=== PATIENT | female | born 1950 | race Caucasian/White ===

== ENCOUNTER → 2020-06-03 13:12 | Outpatient (CLI) | payer MEDICARE, OTHER, SELFPAY ==
--- NOTE | ~2020-06-03 | DEXA_ITS ---
Bone Density Report Name: Sugey Self Age: 70 Sex: Female Ethnicity: White Date of : 1950 Indication: postmenopausal; screening for osteoporosis; height loss; history of glucocorticoids; hysterectomy; Referring Provider: Wang, Raiza Vargas Study: Bone densitometry was performed. Exam Date: June 03, 2020 Accession number: [id number] Bone Density: Region BMD T-score Z-score Classification AP Spine (L1, L2, L3) 1.248 2.1 4.0 Normal Femoral Neck (Left) 0.838 -0.1 1.6 Normal Total Hip (Left) 0.971 0.2 1.6 Normal Femoral Neck (Right) 0.848 0.0 1.7 Normal Total Hip (Right) 0.934 -0.1 1.3 Normal Total Hip Mean 0.953 0.1 1.5 Normal World Health Organization criteria for BMD impression classify patients as: Normal (T-score at or above -1.0), Osteopenia (T-score between -1.0 and -2.5), or Osteoporosis (T-score at or below -2.5). 10-year Fracture Risk: FRAX not reported because: All T-scores for Spine Total, Hip Total, Femoral Neck at or above -1.0 Previous Exams: Region Exam Age BMD T-score BMD Change BMD Change Date g/cm2 vs Baseline vs Previous AP Spine(L1, L2, L3) 06/03/2020 70 1.248 2.1 0.067 -0.048* 12/13/2017 67 1.296 2.5 0.115 0.008 02/11/2013 62 1.288 2.5 0.107 0.091* 01/20/2010 59 1.197 1.6 0.016 0.044* 01/13/2007 56 1.152 1.2 -0.029 -0.029 11/15/2003 53 1.181 1.5 Total Hip(Left) 06/03/2020 70 0.971 0.2 -0.114 -0.030* 12/13/2017 67 1.002 0.5 -0.084 -0.028* 02/11/2013 62 1.030 0.7 -0.056 -0.023 01/20/2010 59 1.053 0.9 -0.033 -0.033 11/15/2003 53 1.086 1.2 Total Hip(Right) 06/03/2020 70 0.934 -0.1 -0.088 0.006 12/13/2017 67 0.929 -0.1 -0.094 -0.048* 02/11/2013 62 0.977 0.3 -0.046 0.019 01/20/2010 59 0.958 0.1 -0.065 -0.065 11/15/2003 53 1.023 0.7 *Denotes significance at 95% confidence level, LSC for AP Spine = 0.022 g/cm2, LSC for Total Hip = 0.027 g/cm2 Clinical Information Provided by Patient: Has taken Glucocorticoids Has the following medical conditions: Hysterectomy Patient maximum height was 67 Menopause Age: 52 Drinks caffeinated beverages Onset of menses at age 13 Number of children 2
--- NOTE | ~2020-06-03 | MM_ITS ---
EXAMINATION: MM screening aleyda BI w mickey HISTORY: Screening mammogram TECHNIQUE: Craniocaudal and mediolateral oblique 3-D tomosynthesis images were obtained and synthetic 2-D images were generated. CAD analysis was submitted and interpreted. COMPARISON: 03/17/2019, 03/01/2017, 02/28/2016 bilateral digital screening mammogram examinations BREAST PARENCHYMAL COMPOSITION: There are scattered areas of fibroglandular density. FINDINGS: Numerous bilateral benign calcifications. There is no evidence of suspicious mass, calcific ation, or architectural distortion to suggest malignancy in either breast. There has been no suspicio us interval change. IMPRESSION: 1. No mammographic evidence of malignancy. 2. Recommend routine screening mammography in one year. BI-RADS Category 2: Benign finding(s). Reviewed, dictated and finalized at location A.
== END ==
PROVIDERS: PCP Family Medicine; Visit Provider Nurse Practitioner Obstetrics & Gynecology
DX: Z12.31 Encounter for screening mammogram for malignant neoplasm of breast (principal); Z78.0 Asymptomatic menopausal state
CPT/HCPCS: 77063; 77067; 77080

== ENCOUNTER → 2021-06-22 13:44 | Outpatient (CLI) | payer MEDICARE, OTHER, SELFPAY ==
--- NOTE | ~2021-06-22 | MM_ITS ---
EXAMINATION: MM screening aleyda BI w mickey HISTORY: Screening mammogram TECHNIQUE: Craniocaudal and mediolateral oblique 3-D tomosynthesis images were obtained and synthetic 2-D images were generated. CAD analysis was submitted and interpreted. COMPARISON: 06/03/2020 bilateral digital screening mammogram 03/17/2019 diagnostic left mammogram 03/12/2019, 03/01/2017 bilateral digital screening mammogram examinations BREAST PARENCHYMAL COMPOSITION: There are scattered areas of fibroglandular density. FINDINGS: Numerous benign calcifications are scattered throughout both breasts. There is no evidence of suspicious mass, calcification, or architectural distortion to suggest malignancy in either breast . There has been no suspicious interval change. IMPRESSION: 1. No mammographic evidence of malignancy. 2. Recommend routine screening mammography in one year. BI-RADS Category 2: Benign finding(s). Reviewed, dictated and finalized at location A.
== END ==
PROVIDERS: PCP Emergency Medicine; Visit Provider Emergency Medicine
DX: Z12.31 Encounter for screening mammogram for malignant neoplasm of breast (principal)
CPT/HCPCS: 77063; 77067

== ENCOUNTER → 2022-03-22 09:59 | Outpatient (CLI) | payer MEDICARE, OTHER, SELFPAY ==
--- NOTE | ~2022-03-22 | XR_ITS ---
EXAMINATION: XR hip BI 2V w AP pelvis DATE: 03/22/2022 10:23 INDICATION: Bilateral hip pain TECHNIQUE: AP view of the pelvis and two views of each views of each hip were obtained. COMPARISON: None. FINDINGS: Bone alignment is normal. There is no fracture. There is mild osteoarthritis of the hips. C alcified atherosclerosis is noted. There are phleboliths in the pelvis. IMPRESSION: 1. Mild osteoarthritis of the hips. Reviewed, dictated and finalized at location A.
== END ==
PROVIDERS: PCP Emergency Medicine; Visit Provider Emergency Medicine
DX: M25.551 Pain in right hip (principal); M25.552 Pain in left hip; M16.0 Bilateral primary osteoarthritis of hip
CPT/HCPCS: 73521

== ENCOUNTER 2022-06-14 02:56 | Outpatient (CLI) | payer MEDICARE, OTHER, SELFPAY ==
[2022-06-07 14:14] VITALS: BMI 26.5
--- NOTE | 2022-06-11 11:40 | PC.NURSE ---
Pre Radiology instructions Report to the Outpatient Waiting Room, entrance under the green pavilion located off [facility], at time _1100 on date _06/14 . Procedure Time: _1300 . One visitor will be allowed to accompany the patient into the hospital. The visitor will be instructed to remain with patient at all times or leave the building due to restrictions. We will allow the visitor to come back to the postoperative area when patient is ready. NO children visitors allowed at this time. You and your visitor will be asked to self-screen and do not enter if you have any COVID symptoms. A mask is required within the hospital. Patients are to have no food or drink 6 hours prior to procedure time Driving will be restricted after the procedure, you must have a person to drive you home. Labs will be drawn in preop area and once reviewed, you will be taken to radiology area for procedure. When the procedure is completed, you will be taken to outpatient where you will be monitored for several hours. You may have one visitor in this area. Other than holding anti-coagulants, patient may take other medication(s) as scheduled. Prior to your appointment date patients are instructed to hold anti-coagulants after discussing with ordering provider to stop. If unable to discontinue anti-coagulants please notify radiologist. No aspirin or warfarin (Coumadin) for 7 days prior to the procedure. No clopidogrel (Plavix), ticagrelor (Brilinta), prasugrel (Effient) or dabigatran (Pradaxa) for 5 days prior to the procedure. No rivaroxaban (Xarelto), apixaban (Eliquis), dipyridamole (Aggrenox or Persantine) or cilostazol (Pletal) for 2 days prior to the procedure. Medications to discontinue per physician: Date to take last dose: Please leave all valuables, including medications, at home the day of procedure. The hospital will not accept responsibility for valuables. Wear comfortable, loose fitting clothing. Follow any additional instructions given to you from ordering provider. Telephone instructions given to ___pt and asked if any additional questions and then verbalized understanding. Patient advised to call scheduling provider office or registration scheduling [phone] if any additional questions.
[2022-06-14] VITALS (7 sets, daily range): BP systolic 165–185; BP diastolic 75–92; PULSE 56–65; RESP 12–20; TEMP 36.6; O2SAT 97–100
--- NOTE | ~2022-06-14 | US_ITS ---
EXAMINATION: US biopsy renal DATE: 06/14/2022 14:41 INDICATION: Chronic kidney disease, stage III. TECHNIQUE: The procedure including the risks, benefits, and alternatives was discussed with the patie nt. Risks discussed included bleeding and infection. The patient understood the risks and agreed to p roceed. A timeout was performed to verify the patient's name, date of , and procedure to be p erformed. The skin overlying the left kidney was prepped and draped in usual sterile fashion. Anest hetic was administered with 1% lidocaine subcutaneously. An 18 gauge core biopsy needle was then use d to obtain 3 core biopsy specimens under continuous sonographic guidance. The entry site was cleaned and dressed. There were no immediate complications. FINDINGS: Ultrasound images demonstrate the needle in the kidney. IMPRESSION: 1. Ultrasound-guided random left kidney core needle biopsy. Reviewed, dictated and finalized at location A.
[2022-06-14] MEDS: SODIUM CHLORIDE 0.9% IV 1,000 ML 30 ML IV CONT (11:35)
[2022-06-14 11:47] LABS: Mean Platelet Volume 7.9 fl (7.4-10.4); Platelet Count Result 584 k/mm3 (150-375)
[2022-06-14 12:09] LABS: INR 0.9; Prothrombin Time 11.6 Seconds (11.1-14.7)
[2022-06-14 15:24] LABS: Glucose Point of Care 104 mg/dl (65-105)
--- NOTE | 2022-06-14 17:03 | SUR.PHASEII ---
[address] marrero about patient possible leaving an hour earlier then the required 4 hour time frame, he is okay with patient leaving around 1700 as long as she is stable and doing okay.
== END 2022-06-14 02:57 | disposition home or self-care (01) ==
PROVIDERS: PCP Emergency Medicine; Referring Provider Internal Medicine Nephrology; Visit Provider Radiology Diagnostic Radiology
PROC: (CPT 76942; principal; 2022-06-14 13:00)
DX: I12.9 Hypertensive chronic kidney disease with stage 1 through stage 4 chronic kidney disease, or unspecified chronic kidney disease (principal); N18.32 Chronic kidney disease, stage 3b; Z51.81 Encounter for therapeutic drug level monitoring; Z79.899 Other long term (current) drug therapy
CPT/HCPCS: 36415; 50200; 76942; 82948; 85049; 85610; 88300; 88305; 88313; 88329; 88346; 88348; 88350; J7030

== ENCOUNTER → 2022-08-02 09:49 | Outpatient (CLI) | payer MEDICARE, OTHER, SELFPAY ==
--- NOTE | ~2022-08-02 | MR_ITS ---
EXAMINATION: MR lumbar spine wo con DATE: 08/02/2022 10:24 INDICATION: Low back pain radiating to the hips. Lumbar radiculopathy. TECHNIQUE: Magnetic resonance imaging (MRI) of the lumbar spine was performed without intravenous con trast. Sequences included sagittal T2-weighted FSE, sagittal T2-weighted FS FSE, sagittal T1-weighted FSE, and axial T2-weighted FSE. COMPARISON: None FINDINGS: There is 15 degrees dextroscoliosis of thoracolumbar spine. Vertebral body heights are norm al. There is moderately decreased disc height at T12-L1, mildly decreased disc height at L2-L3 and L3 -L4, severely decreased disc height at L3-L4 and L4-L5, and mildly decreased disc height at L5-S1. Th e distal spinal cord signal intensity is normal. The conus medullaris is at T12-L1. The following dis c levels are specifically discussed: T12-L1: The disc is bulging. There is moderate right and severe left facet joint osteoarthritis. Ther e is mild left neural foraminal stenosis. There is mild central canal stenosis. L1-L2: The disc is bulging. There is moderate bilateral facet joint osteoarthritis. There is mild lef t neural foraminal stenosis. There is mild central canal stenosis. L2-L3: The disc is bulging. There is mild right and moderate left facet joint osteoarthritis. There i s mild bilateral neural foraminal stenosis. There is mild central canal stenosis. L3-L4: The disc is bulging with superimposed right central extrusion. There is severe bilateral facet joint osteoarthritis. There is moderate bilateral neural foraminal stenosis. There is moderate centr al canal stenosis. L4-L5: The disc is bulging and has an annular fissure. There is severe bilateral facet joint osteoart hritis. There is moderate bilateral neural foraminal stenosis. There is mild central canal stenosis. L5-S1: The disc is bulging and has an annular fissure. There is severe bilateral facet joint osteoart hritis. There is mild bilateral neural foraminal stenosis. There is mild central canal stenosis. IMPRESSION: 1. Severe lumbar spondylosis. 2. Thoracolumbar dextroscoliosis. Reviewed, dictated and finalized at location A.
== END ==
PROVIDERS: PCP Emergency Medicine; Visit Provider Nurse Practitioner Family
DX: M54.16 Radiculopathy, lumbar region (principal); M43.06 Spondylolysis, lumbar region; M41.85 Other forms of scoliosis, thoracolumbar region
CPT/HCPCS: 72148

== ENCOUNTER → 2022-12-11 12:07 | Outpatient (CLI) | payer MEDICARE, OTHER, SELFPAY ==
--- NOTE | ~2022-12-11 | DEXA_ITS ---
Bone Density Report Name: BIANKA LICONA Age: 72 Sex: Female Ethnicity: White Date of : 1950 Indication: postmenopausal; screening for osteoporosis; height loss; asthma or emphysema; hysterectomy; Referring Provider: MARVEL THAO Study: Bone densitometry was performed. Exam Date: December 11, 2022 Accession number: [id number] Bone Density: Region BMD T-score Z-score Classification AP Spine (L1, L2, L3) 1.329 2.8 4.9 Normal Femoral Neck (Left) 0.756 -0.8 1.0 Normal Total Hip (Left) 0.915 -0.2 1.3 Normal Femoral Neck (Right) 0.775 -0.7 1.2 Normal Total Hip (Right) 0.873 -0.6 1.0 Normal Total Hip Mean 0.894 -0.4 1.2 Normal World Health Organization criteria for BMD impression classify patients as: Normal (T-score at or above -1.0), Osteopenia (T-score between -1.0 and -2.5), or Osteoporosis (T-score at or below -2.5). 10-year Fracture Risk: FRAX not reported because: All T-scores for Spine Total, Hip Total, Femoral Neck at or above -1.0 Previous Exams: Region Exam Age BMD T-score BMD Change BMD Change Date g/cm2 vs Baseline vs Previous AP Spine(L1, L2, L3) 12/11/2022 72 1.329 2.8 0.148 0.082* 06/03/2020 70 1.248 2.1 0.067 -0.048* 12/13/2017 67 1.296 2.5 0.115 0.008 02/11/2013 62 1.288 2.5 0.107 0.091* 01/20/2010 59 1.197 1.6 0.016 0.044* 01/13/2007 56 1.152 1.2 -0.029 -0.029 11/15/2003 53 1.181 1.5 Total Hip(Left) 12/11/2022 72 0.915 -0.2 -0.170 -0.056* 06/03/2020 70 0.971 0.2 -0.114 -0.030* 12/13/2017 67 1.002 0.5 -0.084 -0.028* 02/11/2013 62 1.030 0.7 -0.056 -0.023 01/20/2010 59 1.053 0.9 -0.033 -0.033 11/15/2003 53 1.086 1.2 Total Hip(Right) 12/11/2022 72 0.873 -0.6 -0.150 -0.062* 06/03/2020 70 0.934 -0.1 -0.088 0.006 12/13/2017 67 0.929 -0.1 -0.094 -0.048* 02/11/2013 62 0.977 0.3 -0.046 0.019 01/20/2010 59 0.958 0.1 -0.065 -0.065 11/15/2003 53 1.023 0.7 *Denotes significance at 95% confidence level, LSC for AP Spine = 0.022 g/cm2, LSC for Total Hip = 0.027 g/cm2 Clinical Information Provided by Patient: Has the following medical conditions: Asthma or Emphysema, Hysterectomy Patient maximum height
--- NOTE | ~2022-12-11 | MM_ITS ---
EXAMINATION: MM screening aleyda BI w mickey HISTORY: Screening mammogram TECHNIQUE: Craniocaudal and mediolateral oblique 3-D tomosynthesis images were obtained and synthetic 2-D images were generated. CAD analysis was submitted and interpreted. COMPARISON: 06/22/2021, 06/03/2020, 03/2019 bilateral screening mammogram examinations BREAST PARENCHYMAL COMPOSITION: There are scattered areas of fibroglandular density. FINDINGS: Numerous bilateral benign calcifications are scattered throughout the breast. There is no e vidence of suspicious mass, calcification, or architectural distortion to suggest malignancy in eithe r breast. There has been no suspicious interval change. IMPRESSION: 1. No mammographic evidence of malignancy. 2. Recommend routine screening mammography in one year. BI-RADS Category 2: Benign finding(s). Reviewed, dictated and finalized at location A. D [employer]
== END ==
PROVIDERS: PCP Emergency Medicine; Visit Provider Emergency Medicine
DX: Z12.31 Encounter for screening mammogram for malignant neoplasm of breast (principal); Z78.0 Asymptomatic menopausal state
CPT/HCPCS: 77063; 77067; 77080

== ENCOUNTER 2022-12-18 08:47 | Outpatient (CLI) | payer MEDICARE, OTHER, SELFPAY | END 2022-12-18 08:48 | disposition home or self-care (01) | LOC: ANHOUTPT 08:49 | PROVIDERS: PCP Emergency Medicine; Visit Provider Internal Medicine Nephrology | DX: E87.1 Hypo-osmolality and hyponatremia (principal) | CPT/HCPCS: 36415; 82533; 96372; J0834 ==

== ENCOUNTER 2023-06-06 10:43 | Emergency (ER) | payer MEDICARE, OTHER, SELFPAY ==
--- NOTE | 2023-06-06 10:50 | ED.URI ---
HPI - URI/Sore Throat General Chief Complaint: Upper Respiratory Infection Stated Complaint: Sinus Time Seen by Provider: 06/06/23 10:50 Source: patient Mode of arrival: ambulatory Limitations: no limitations History of Present Illness HPI Narrative: Patient is a 73-year-old female who presents with 1 week of chest congestion and productive cough. Patient also reports chills but unsure if she had a fever. Denies any nasal congestion, ear pain, headache, sore throat. States she feels overall lousy. Denies any nausea, vomiting, diarrhea. It is a current smoker. Has been taking Terri-[place] Plus and her inhaler with little to no relief. Has a history of bronchitis but denies any history of pneumonia or emphysema. Related Data Home Medications Medication Instructions Recorded Confirmed aspirin 81 mg tablet,delayed 81 mg PO DAILY 02/28/21 06/06/23 release tramadol 50 mg tablet 50 mg DIRECTED 06/06/23 06/06/23 Allergies Allergy/AdvReac Type Severity Reaction Status Date / Time codeine Allergy Intermediate HEAVY Verified 02/05/23 10:19 FEELING ON CHEST hydrocodone Allergy Intermediate Rash Verified 02/05/23 10:19 Review of Systems Review of Systems: All systems reviewed & are unremarkable except as noted in HPI and below Constitutional: Constitutional: Denies body ache(s), Reports chills, Reports fatigue, Denies fever(s), Denies headache(s), Reports malaise and Denies weakness Eyes: Eyes: Denies blurry vision, Denies itchy eyes and Denies loss of vision ENT: Denies otalgia, Denies headache(s), Denies nasal congestion, Denies sinus pain and Denies sore throat Cardiovascular: Cardiovascular: Denies chest pain, Denies irregular heart rhythm and Denies dyspnea Respiratory: Respiratory: Reports chest congestion, Reports cough and Denies dyspnea Gastrointestinal: Gastrointestinal: Denies abdominal pain, Denies diarrhea, Denies nausea and Denies vomiting Musculoskeletal: Musculoskeletal: Denies back pain, Denies myalgias and Denies arthralgias Integumentary/Breasts: Skin/Breast: Denies pruritus and Denies rash Neurologic: Denies headache(s), Denies loss of vision and Denies weakness Psychiatric: Psychiatric: Reports no additional psychiatric complaints Endocrine: Endocrine: Denies fatigue Allergic/Immunologic: Allergic/Immunologic: Denies itchy eyes PMFSH Past Medical History Medical History Blood in urine Chicken pox Cholecystectomy planned (~2000) Ear discharge History of one miscarriage History of sinus problem Vaginal infection Surgical History Surgical History H/O: hysterectomy (~2002) Family History Family History Father , 49 Hepatic sclerosis Mother , 77 Diabetes mellitus Renal failure Social History Social History (Updated 02/05/23 @ 11:35 by Juliocesar Morales MD) Social History: Patient drinks 2 pots of coffee per day. Smoking packs per day: 0.5 Smoking cigarettes per day: 10.0 Smoking status: Former smoker Tobacco type: cigarettes Alcohol intake: current Alcohol use details: Patient drinks alcohol rarely Substance use: never Substance use type: does not use Lack of Transportation: No Lack of Food: Never True Current Housing: I Have Housing Concerned About Future Housing: No Difficulty Paying Gas/Electric Bills: No Difficulty Paying for Meds: No Currently Unemployed: No Education: High School Diploma/GED Living arrangements: with family Occupation/Education: retired Gender identity (if verbalized by the patient): Female Sexual Orientation (if Verbalized by the Patient): Straight or Heterosexual Comments At time of signature, agree with nursing past medical, surgical, social and family history. There is no relevant family history pertinent to
[2023-06-06 10:52] VITALS: BP 164/63; PULSE 57; RESP 18; TEMP 36.7; O2SAT 98
== END 2023-06-06 11:16 | disposition home or self-care (01) ==
PROVIDERS: Emergency Provider Nurse Practitioner Family; PCP Emergency Medicine
DX: J06.9 Acute upper respiratory infection, unspecified (principal); R05.9 Cough, unspecified; F17.210 Nicotine dependence, cigarettes, uncomplicated; Z79.82 Long term (current) use of aspirin
CPT/HCPCS: 99213; G0463

== ENCOUNTER 2023-12-31 11:33 | Outpatient (CLI) | payer MEDICARE, OTHER, SELFPAY ==
--- NOTE | ~2023-12-31 | CT_ITS ---
EXAMINATION: CT sinus wo con DATE: 12/31/2023 11:47 INDICATION: Sinus drainage. Sinonasal mass is suspected. TECHNIQUE: Computed tomography (CT) of the paranasal sinuses was performed without contrast. Iterativ e reconstruction technique was employed. Exam dose: 264.97 mGy-cm total exam DLP. COMPARISON: None FINDINGS: There is prominent leftward deviation of the nasal septum. Bilateral juan bullosa of the middle nasal turbinates. Bilateral Rebekah's cells. The ostiomeatal units are patent bilaterally. Minimal focal soft tissue thickening at the left frontoethmoid area. The frontal sinuses, ethmoid air cells and left maxillary sinus are clear otherwise. There is mild mucoperiosteal thickening at the p osterior inferomedial right maxillary sinus. The right maxillary sinus is otherwise clear. There is prominent mucoperiosteal thickening along the floor of the right sphenoid sinus. There is partial opacification of the left mastoid air cells, particularly inferiorly. The right mast oid air cells are normally developed and aerated. IMPRESSION: Prominent leftward deviation of nasal septum Bilateral middle nasal turbinate juan bullosa Bilateral Rebekah's cells Soft tissue thickening of the floor of the right sphenoid sinus, mild focal mucoperiosteal thickening of the posterior inferomedial right maxillary sinus wall Partial opacification of left mastoid air cells Reviewed, dictated and finalized at Location A. Reviewed, dictated and finalized at location L. IMPRESSION: Prominent leftward deviation of nasal septum Bilateral middle nasal turbinate juan bullosa Bilateral Rebekah's cells Soft tissue thickening of the floor of the right sphenoid sinus, mild focal muc operiosteal thickening of the posterior inferomedial right maxillary sinus wall Partial opacification of left mastoid air cells
== END 2023-12-31 11:34 ==
LOC: MICIMG 11:34
PROVIDERS: PCP Emergency Medicine; Visit Provider Emergency Medicine
DX: J34.89 Other specified disorders of nose and nasal sinuses (principal); J34.2 Deviated nasal septum; J32.8 Other chronic sinusitis
CPT/HCPCS: 70486

== ENCOUNTER 2024-04-17 10:00 | Outpatient (CLI) | payer MEDICARE, OTHER, SELFPAY ==
--- NOTE | ~2024-04-17 | US_ITS ---
EXAMINATION: US renal BI DATE: 04/17/2024 11:01 INDICATION: Renal insufficiency with decreased marrow infiltration right TECHNIQUE: Multiple ultrasound grayscale images of the kidneys were obtained. COMPARISON: 06/14/2022 FINDINGS: The right kidney measures 9.0 x 4.4 x 4.7 cm. The left kidney measures 11.0 x 6.0 x 5.0 cm. Is promin ent diffuse increased bilateral renal cortical echogenicity consistent with medical renal disease. 1. 9 cm and 0.9 cm anechoic left renal cysts. There is no hydronephrosis in either kidney. No stones id entified. The bladder is normal with bilateral ureteral jets visualized on color Doppler. IMPRESSION: 1. Bilateral diffuse increased renal cortical echogenicity consistent with medical renal disease. No hydronephrosis. Reviewed, dictated and finalized at location B. IMPRESSION: 1. Bilateral diffuse increased renal cortical echogenicity consistent with med ical renal disease. No hydronephrosis.
== END 2024-04-17 10:01 | disposition home or self-care (01) ==
PROVIDERS: PCP Emergency Medicine; Visit Provider Internal Medicine Nephrology
DX: N18.4 Chronic kidney disease, stage 4 (severe) (principal)
CPT/HCPCS: 76775

== ENCOUNTER 2024-04-22 11:41 | Outpatient (CLI) | payer MEDICARE, OTHER, SELFPAY ==
--- NOTE | ~2024-04-22 | NM_ITS ---
EXAMINATION: NM renal flow and function DATE: 04/22/2024 15:01 INDICATION: Acute renal failure TECHNIQUE: 7.9 mCi Tc-99m MAG3 was administered IV. The patient was scanned in the supine position. A posterior abdominal radionuclide angiogram was obtained. A subsequent time course of static images of the kidneys, ureters, and bladder was obtained. COMPARISON: None FINDINGS: The posterior abdominal radionuclide angiogram and sequential static images show normal size, positio n, and morphology of the kidneys. Peak renal parenchymal uptake was 6.5 min in left kidney and 9.5 mi n in right kidney (normal peak 3-5 minutes). The relative early renal uptake was 50% on the left and 50% on the right (<40% is abnormal). No evident dilated renal pelvises to suggest hydronephrosis. No abnormalities of the ureters or bladder are seen. There is delayed activity clearance from the blood pool with minimal difference in appearance of the liver, spleen and major vessels of the abdomen and pelvis of the 30 minutes of imaging. Calculated T1/2 for clearance of activity from the left kidney and proximal collecting system was 85 minutes. Calculated T1/2 for clearance of activity from the right kidney and proximal collecting system was 32 minutes. IMPRESSION: 1. Symmetric kidney function. 2. 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 Reviewed, dictated and finalized at location A. IMPRESSION: 1. Symmetric kidney function. 2. Delayed clearance of blood pool activity and significantly decreased T1/2 o f activity clearance from both kidneys consistent with nonspecific nonobstructi ve nephropathy in both kidneys.
== END 2024-04-22 11:42 | disposition home or self-care (01) ==
PROVIDERS: PCP Emergency Medicine; Visit Provider Internal Medicine Nephrology
DX: N18.4 Chronic kidney disease, stage 4 (severe) (principal)
CPT/HCPCS: 78707; A9562

== ENCOUNTER 2024-06-10 15:30 | Outpatient (CLI) | payer MEDICARE, OTHER, SELFPAY ==
--- NOTE | ~2024-06-10 | MM_ITS ---
EXAMINATION: MM screening aleyda BI w mickey HISTORY: Screening TECHNIQUE: Craniocaudal and mediolateral oblique 3-D tomosynthesis images were obtained and synthetic 2-D images were generated. CAD analysis was submitted and interpreted. COMPARISON: Comparison to multiple prior studies sequentially, with oldest reviewed study dated 03/01. BREAST PARENCHYMAL COMPOSITION: Not dense: There are scattered areas of fibroglandular density. FINDINGS: There is no evidence of suspicious mass, calcification, or architectural distortion to sugg est malignancy in either breast. There has been no suspicious interval change. IMPRESSION: 1. No mammographic evidence of malignancy. 2. Recommend routine screening mammography in one year. BI-RADS Category 1: Negative Reviewed, dictated and finalized at location B.
== END 2024-06-10 15:31 ==
LOC: MICIMG 15:30
PROVIDERS: PCP Emergency Medicine; Visit Provider Emergency Medicine
DX: Z12.31 Encounter for screening mammogram for malignant neoplasm of breast (principal)
CPT/HCPCS: 77063; 77067

== ENCOUNTER 2025-01-08 09:05 | Outpatient (CLI) | payer MEDICARE, OTHER, SELFPAY ==
--- NOTE | 2025-01-08 09:28 | ECG_ITS ---
Test Date: 2025-01-08 10:02:36 Measurements Intervals Anderson Rate: 53 P: 22 MO: 240 QRS: 34 QRSD: 94 T: 81 QT: 445 QTc: 421 Interpretive Statements SINUS BRADYCARDIA WITH FIRST DEGREE AV BLOCK NONSPECIFIC ST & T-WAVE ABNORMALITY POSSIBLE OLD SEPTAL INFARCT NO PRIOR ECG AVAILABLE FOR COMPARISON. Electronically Signed On 01-08-2025 13:15:39 CDT by Анна Sales M.D.
--- OUTSIDE RECORDS SUMMARY | 2025-01-08 09:31 | XMS_ITS | Clinical Summary ---
Author Organization [facility] utions Address [address] [place] [id number] Phone Care Team Providers Care [employer] Machine Assembler Name Role Phone Joshua Bond MD Primary Care Provider [phone] Allergies Active Allergy Reactions Criticality Noted Date Comments Codeine 05/11/2022 Nitrofurantoin 05/11/2022 Medications Medication Sig Dispensed Refills Start Date End Date Status albuterol HFA (PROVENTIL HFA) 108 (90 Base) MCG/ACT inhaler INHALE 1 PUFF BY MOUTH EVERY 4 HOURS NEEDED FOR SHORTNESS OF BREATH OR WHEEZING. 04/23/2022 Active amLODIPine (NORVASC) 5 MG tablet Take 5 mg by mouth 1 (one) time each day in the evening 04/14/2022 Active atorvastatin (LIPITOR) 40 MG tablet Take 40 mg by mouth 1 (one) time each day in the evening 02/16/2022 Active chlorthalidone (HYGROTON) 25 MG tablet Take 25 mg by mouth 1 (one) time each day in the morning 04/04/2022 Active fenofibrate (TRICOR) 48 MG tablet Take 48 mg by mouth 1 (one) time each day 03/19/2022 Active metoprolol tartrate (LOPRESSOR) 100 MG tablet Take 100 mg by mouth 1 (one) time each day in the morning 04/20/2022 Active venlafaxine XR (EFFEXOR-XR) 75 MG 24 hr capsule Take 75 mg by mouth 1 (one) time each day in the morning 05/01/2022 Active Multiple Vitamins-Minerals (CENTRUM SILVER 50+WOMEN PO) Centrum Silver Active Active Problems Problem Noted Date Diagnosed Date Chronic kidney disease stage 3B 05/14/2022 Essential hypertension 05/14/2022 Dyslipidemia 05/14/2022 Microscopic hematuria 01/31/2016 Urinary tract infectious disease 01/31/2016 Family History Medical History Relation Comments Diabetes Mother Kidney disease Mother Diabetes Sister Kidney disease Sister Relation Status Comments Mother Sister Social History Tobacco Use Types Packs/Day Years Used Date Smoking Tobacco: Light Smoker Smokeless Tobacco: Never Alcohol Use Standard Drinks/Week Comments Yes 0 (1 standard drink = 0.6 oz pur e alcohol) rare Sex and Gender Information Value Date Recorded Sex Assigned at Not on file Gender Identity Not on file Sexual Orientation Not on file Last Filed Vital Signs Vital Sign Reading Time Taken Comments Blood Pressure 124/84 05/14/2022 11:31 AM CDT Pulse 60 05/14/2022 11:31 AM CDT Temperature 35.3 C (95.5 F) 05/14/2022 11:31 AM CDT Respiratory Rate - - Oxygen Saturation - - Inhaled Oxygen Concentration - - Weight 75.3 kg (166 lb) 05/14/2022 11:31 AM CDT Height 170.2 cm (5' 7 ) 05/14/2022 11:31 AM CDT Body Mass Index 26 05/14/2022 11:31 AM CDT Plan of Treatment Health Maintenance Due Date Last Done Comments Pneumococcal PPSV23/PCV13 65 + Years / Low and Medium Risk (1 of 4 - PCV) 2017 Influenza Vaccine (#1) 2024 Care Teams [employer] Machine Assembler Relationship Specialty Start Date End Date Joshua Bond MD [address] [place] [address] PCP - General Internal Medicine 04/11/22
--- OUTSIDE RECORDS SUMMARY | 2025-01-08 09:31 | XMS_ITS | Data Portability ---
Author Organization [facility] [place] Address [address] [place] [address] [place] [address] Assessment Encounter Date Assessment Date Assessment LastModified by Organization Details LastModified Time 03/22/2020 03/22/2020 Annual gynecological exam performed. Patient will come back in a year unless there are new symptoms. [email or web address] Not available 03/22/2020 12:24:00 Plan of Treatment Reminders Order Date Submit Date Provider Last Modified By Organization Details Last Modified Time Details Appointments None recorded. Lab urinalysis , dipstick 2019 020 [facility]1 [place], [address], [place], [address], 0 12:49:42 Referral None recorded. Procedures None recorded. Surgeries None recorded. Imaging DEXA, axial skeleton + vertebral fracture assessment 2019 020 [facility], [facility] [facility] [address], [place], [address], 0 15:02:18 Medication Orders Effexor XR 75 mg capsule,ex tended release 2019 020 INTERFACE [facility] [facility], [place], [address], 0 13:46:44 Patient TargetsNo targets recorded. Patient InstructionsNo instructions recorded. Reason for Referral None Reported. Results Created Date Observation Date Name Description Value Unit Range Abnormal Flag Note LastModifiedBy Organization Detail LastModifiedTime 03/22/20 20 03/23/2020 cultu re, urine specimen source Urine - Void Not Available [facility] ([facility]) [address], [place], [address], 03/25/2020 12:10:23 03/22/20 20 03/23/2020 cultu re, urine culture, urine See Below See Micro biolo gy Repor t Not Available [facility] ([facility]) [address], [place], [address], 03/25/2020 12:10:23 03/22/20 20 03/23/2020 cultu re, urine escherichia coli esbl 15,000 -25,00 0 CFU/ml Escher ichia coli ESBL This isola te is a confi rmed ESBL (Exte nded Spect rum Beta- Lacta imelda) produ cer and shoul d be consi dered clini maude resis tant to all penic illin s, cepha lospo rins and aztre onam. Not Available [facility] ([facility]) [address], [place], [address], 03/25/2020 12:10:23 03/22/20 20 03/23/2020 cultu re, urine sensitivity panel See Below ___ Organ ism E.col i ESBL Antib iotic INTER P ___ Amika noe S Amp/S ulbac benitez I Ampic illin R Aztre onam R Cefaz emeka R Cefep kaykay R Cefox itin S Cefta zidim e R Ceftr iaxon e R Cefur oxime R Cipro floxa noe R Ertap enem S Genta micin S Imipe nem S Levof loxac in R Merop enem S Nitro furan toin S Piper acill in/Ta zo S Tetra cycli ne S Tigec yclin e S Tobra mycin S Trime th/Maurice lfa S __ S=PROSPER CEPTI BLE I=INT ERMED IATE R=RES ISTAN T Not Available [facility] [address] [facility], [place], [address], 03/25/2020 12:10:23 03/22/20 20 03/22/2020 urina lysis , dipst ick Leukocytes trace Not Available [facility] [address], [place], [address], 03/22/2020 12:39:34 03/22/20 20 03/22/2020 urina lysis , dipst ick Nitrite neg Not Available [place] [address], [place], [address], 03/22/2020 12:39:34 03/22/20 20 03/22/2020 urina lysis , dipst ick Blood ++ Not Available [place] [address], [place], [address], 03/22/2020 12:39:34 03/22/20 20 03/22/2020 urina lysis , dipst ick Leukocytes trace Not Available Fiorella lopes [address], [place], [address], 03/22/2020 12:37:36 06/0903/22/2020 urina lysis , dipst ick Nitrite neg Not Available [place] [address], [place], [address], 03/22/2020 12:37:36 03/22/20 20 03/22/2020 urina lysis , dipst ick Blood ++ Not Available [place] [address], [place], [address], 03/22/2020 12:37:36 06/03/20 20 06/03/2020 MAMMO , scree kari, bilat eral No observ ation record ed. [facility] [address], [place], [address], 06/07/2020 18:06:12 06/13/20 20 DEXA, axial skele ton + verte bral fract ure asses sment No observ ation record ed. [facility] [address], [place], [address], 06/22/2020 16:28:43 Result Notes None recorded. Problems Name Problem SNOMED Code Status Onset Date Resolution Date Notes Provider Name and Address Organization Details Recorded Time SNOMED CT Concept Active 2015 Encntr for general adult medical exam w/o abnormal findings;R ecorded Elsewhere: No Locatio n: [facility] rce: EHR Chroni c: N Practice ID: 0001 Billa ble Time: 10:00:00 AM Not Available [facility] 0 21:21:31 Microscop ic hematuria 763191493 Active 2015 Other microscopi c hematuria; Recorded Elsewhere: No Locatio n: [facility] rce: EHR Chroni c: N Practice ID: 0001 Billa ble Time: 10:00:00 AM Not Available [facility] 0 21:21:[address] Concept Active 2018 Well woman check w/o abnormal finding;Re corded Elsewhere: No Locatio n: [facility] rce: EHR Chroni c: N Practice ID: 0001 Billa ble Time: 11:00:00 AM Not Available [facility] 0 21:21:32 Specializ ed medical examinati on Active 2013 Gynecologi viktoria Examinatio n;Recorded Elsewhere: No Locatio n: [facility] rce: EHR Chroni c: N Practice ID: 0001 Billa ble Time: 02:30:00 PM Not Available [facility] 0 21:21:32 Screening for malignant neoplasm of rectum Active 2017 Encounter for screening for malignant neoplasm of rectum;Rec orded Elsewhere: No Locatio n: [facility] rce: EHR Chroni c: N Practice ID: 0001 Billa ble Time: 11:30:00 AM Not Available [facility] 0 21:21:32 Evaluatio n finding Active 2016 Hematuria, unspecifie d;Recorded Elsewhere: No Locatio n: [facility] rce: EHR Chroni c: N Practice ID: 0001 Billa ble Time: 11:30:00 AM Not Available [facility] 0 21:21:32 Adult health examinati on Active 2014 ROUTINE MEDICAL EXAM;Recor ded Elsewhere: No Locatio n: [facility] rce: EHR Chroni c: N Practice ID: 0001 Billa ble Time: 09:00:00 AM Not Available [facility] 0 21:21:32 Urinary tract infectiou s disease 28424863 Active 2015 UTI;Record ed Elsewhere: No Locatio n: [facility] rce: EHR Chroni c: N Practice ID: 0001 Billa ble Time: 10:00:00 AM Not Available [facility] 0 21:21:32 Screening for malignant neoplasm of cervix Active 2011 Screening for malignant neoplasms of the cervix;Rec orded Elsewhere: No Locatio n: [facility] rce: EHR Chroni c: N Practice ID: 0001 Billa ble Time: 03:30:00 PM Not Available [facility] 0 21:21:33 Radiologi c finding 180422941 Active 2018 Oth abn and inconclusi ve findings on dx imaging of breast;Rec orded Elsewhere: No Locatio n: [facility]ana rce: EHR Chroni c: N Practice ID: 0001 Billa ble Time: 08:19:32 AM Not Available [facility] 0 21:21:[address] Concept Active 2016 Encounter for general adult medical exam w abnormal findings;P ractice ID: 0001 Not Available [facility] 0 21:21:36 Problem Notes None recorded. Procedures Surgical History Date Name Laterality Status Provider Name and Address Organization Details Recorded Time 10/14/19 [address] [facility] 03/22/2020 12:43:46 10/14/19 03 Total Hysterectomy completed [facility] 03/22/2020 12:54:27 10/14/18 [address] [facility] 03/22/2020 12:42:53 10/14/18 62 hernia repair completed [facility] 03/22/2020 12:42:[address] [facility] 03/22/2020 12:42:08 Imaging Results Imaging Date Name Status LastModified by Organiz ation Details LastModified Time 06/03/2020 MAMMO, screening, bilateral completed [facility] [address], [place], [address], 06/07/2020 18:06:12 06/13/2020 DEXA, axial skeleton + vertebral fracture assessment completed [facility] [address], [place], [address], 06/22/2020 16:28:43 Procedure Notes None recorded. Medical Equipment None Reported. Allergies Allergen ID Allergen Name Allergen Category Reaction Reaction Severity Criticality Documentation Date Start Date Code Code System Note Provider Name and Address Organization Details Recorded Time 925 codeine medicatio n Not available Not available Not available 03/22/2020 8650 RxNorm Selena Mcaley null, [facility] 0 12:24:47 926 nitrofura ntoin medicatio n Not available Not available Not available 03/22/2020 7454 RxNorm Selena amaral, [facility] 0 12:24:55 Medications Name Sig Start Date Stop Date Status Note LastModified by Organization Details LastModified Time atorvasta tin 40 mg tablet active Not Available Not Available Not Available atorvasta tin 20 mg tablet take 1 tablet by oral route every day 2018 active Prescrib ed Elsewher e: Yes Loca tion: [facility] odify By: aba pedrozaunttj DateTime : 02/05/20 19 11:00:00 AM Not Available Not Available Not Available Effexor XR 75 mg capsule,e xtended release Take 1 capsule every day by oral route for 90 days. 2019 active Not Available Not Available Not Avai lable metoprolo l tartrate 100 mg tablet active Not Available Not Available Not Available Lopressor 5 mg/5 mL intraveno us solution inject 5 millilit er by intraven ous route every 2 minutes for 3 doses active Prescrib ed Elsewher e: Yes Loca tion: [facility] odify By: kylah Issa nttj DateTime : 12/30/19 12 09:39:28 PM Not Available Not Available Not Available ibuprofen 200 mg capsule take 1 capsule by oral route every 6 hours as needed 01/01 completed Prescrib ed Elsewher e: Yes Loca tion: [facility] odify By: gail Wilks ncounttj DateTime : 12/30/19 12 09:39:28 PM Not Available Not Available Not Available Effexor XR 37.5 mg capsule,e xtended release take 1 capsule by oral route every day with food 01/01 completed Prescrib ed Elsewher e: Yes Loca tion: [facility] odify By: kylah Issa nter DateTime : 12/30/19 12 09:39:28 PM Not Available Not Available Not Available chlorthal idone 25 mg tablet active Not Available Not Available No t Available amlodipin e 5 mg tablet take 1 tablet by oral route every day active Prescrib ed Elsewher e: Yes Loca tion: [facility] odify By: dung pedrozaunttj DateTime : 02/04/20 18 11:30:00 AM Not Available Not Available Not Available Macrobid 100 mg capsule take 1 capsule by oral route every 12 hours with food 2018 active Prescrib ed Elsewher e: No Locat ion: [facility] odify By: kylah Tomou nter DateTime : 02/08/20 19 09:53:26 PM Not Available Not Available Not Available hydrochlo rothiazid e 12.5 mg capsule take 2 capsule by oral route every day active Prescrib ed Elsewher e: Yes Loca tion: [facility] odify By: kylah Issa nter DateTime : 12/30/19 12 09:39:28 PM Not Available Not Available Not Available Lipitor 10 mg tablet take 1 tablet by oral route every day active Prescrib ed Elsewher e: Yes Loca tion: [facility] odify By: kylah Tomou nter DateTime : 12/30/19 12 09:39:28 PM Not Available Not Available Not Available niacin ER 125 mg capsule,e xtended release take 1 capsule by oral route 3 times every day with meals active Prescrib ed Elsewher e: Yes Loca tion: [facility] odify By: geri javed DateTime : 01/26/20 15 09:00:00 AM Not Available Not Available Not Available Bactrim DS 800 mg-160 mg tablet Take 1 tablet every 12 hours by oral route for 5 days. 2019 active Not Available Not Available Not Avai lable Wellbutri n XL 300 mg 24 hr tablet, extended release take 1 tablet (300MG) by oral route every day 01/25 completed Prescrib ed Elsewher e: No Locat ion: [facility] odify By: kylah Tomou nter DateTime : 01/20/20 14 02:30:00 PM Not Available Not Available Not Available Lipitor active Not Available Not Avail able Not Available niacin active Not Available Not Availa ble Not Available Effexor XR active Not Available Not Available Not Available hydrochlo rothiazid e active Not Available Not Available Not Available amlodipin e active Not Available Not Available Not Available Lopressor active Not Available Not Suze ilable Not Available Centrum Silver active Not Available Not Available Not Available Centrum Silver Ultra Women's tablet active Prescrib ed Elsewher e: Yes Loca tion: [facility] odify By: geri javed DateTime : 01/26/20 15 09:00:00 AM Not Available Not Available Not Available Vitals Date Recorded Body height Body mass index (BMI) Body weight Systolic blood pressure Diastolic blood pressure Provider Name and Address Organization Details Last Updated DateTime 03/22/2020 167.64 cm 27.4 kg/m2 59503.7 g 148 mm[Hg] 70 mm[Hg] [facility] 12:24:26 Social History None recorded. Functional Status None recorded. Mental Status None recorded. Family History Relationship Description Onset Age of this Age Resolved Age Notes LastModified by Organization Details LastModified Time Maternal Aunt Carcinoma in situ of breast [email or web address] Not available 2019 12:36:11 Paternal Aunt Carcinoma in situ of breast [email or web address] Not available 2019 12:36:21 Sister Hypertensive disorder [email or web address] Not available 2019 12:36:40 Sister Diabetes mellitus [email or web address] Not available 2019 12:38:27 Maternal Grandmother Cerebrovascu lar accident [email or web address] Not available 06/2020 12:37:13 Mother Diabetes mellitus [email or web address] Not available 2019 12:37:26 Mother Hypertensive disorder [email or web address] Not available 2019 12:37:34 Mother Carcinoma in situ of colon [email or web address] Not available 2019 12:38:18 Mother Disorder of coronary artery [email or web address] Not available 2019 12:38:56 Notes:Maternal aunt: Cancer, breast Maternal grandmother: Stroke Mother: Hypertension, Diabetes mellitus, Cancer, colon, Coronary artery disease Paternal aunt: Cancer, breast Sister: Diabetes mellitus, Hypertension Medical History Condition Response Hypertension Y Gynecological HistoryNo gynecological history recorded. Obstetrics History GPAL:G 0 P 0 0 0 0 Past Encounters Encounter ID Performer Location Encounter Start Date Encounter Closed Date Diagnosis/Indication Diagnosis SNOMED-CT Code Diagnosis ICD10 Code Diagnosis Note [id number] [facility] [address] [address] 03/22/2020 12:17:05 03/22/2020 13:21:32 Postmenopausal state 44639126 Z78.0 Gynecologi c examination 21203884 Z01.419 Take Calcium with Vitamin D 12-1500mg daily. Do monthly self breast exams. It is advised to get annual flu shot in the fall and she could obtain at [facility] or [facility]. If you haven't received the Tdap vaccine in the last 10 years you should obtain one as well. Have mammogram yearly, bone density every 2-3 years and colonoscop y every 5-10 years depending on findings and history. Engage in daily exercise of low impact aerobic exercise 45-60 minutes 4-5 times weekly. Avoid tobacco and illicit drugs as well as using moderation with alcohol intake less than 1-2 8 oz beverages daily. This lifestyle behavior pattern will lead to less health conditions and longer life span. If BMI greater than 25 weight watchers or dietary consult advised. Questions have been answered. Patient appears to understand instructio ns, but if you have any further questions call or respond to this email Pap/hpv deferred. D/C unless otherwise indicated per asccp. Colonoscop y uptodate Neg sx's UTI or urinary issues. See's PCP and urine screened q6mos. Screening for osteoporosis 413388343 Z13.820 Blood in urine 98872663 R31.9 Health Concerns Section Related Observation LastModified by Organization Detai ls LastModified Time None Recorded Concern Status LastModified by Organization Details LastModified Time None Recorded Advance Directives Directive None Recorded Payers Encounter Date Sequence Insurance Name Policy Number Policy Li Covered Member ID Li Member ID Guarantor Name 03/22/2020 1 [place] Sugey Self [id number] 03/22/2020 2 [employer] Self [id number] Notes Date Note Type Note Provider Name and Address Organization Details Recorded Time 03/22/2020 text/html Annual GYNReport ed bypatient.History: no gynecologic complaints Menstrual cycle:Normal menses Urinary symptoms:No hematuria; No incontinence Vulva:No genital lesion Vagina:Normal vaginal discharge Breast:No breast pain; No breast lump; No nipple discharge Sexual complaints:No sexual complaints; No pain during intercourse; Normal libido Menopausal Symptoms:No menopausal symptoms; Normal vaginal lubrication Psychological symptoms:No depression; No anxiety; No PMDD Preventive measures:Encourage self breast examination; Encourage regular exercise; Encourage no tobacco use; Encourage regular mammograms starting age 40; Needs to schedule mammogram; Up to date on colonoscopy screening Raiza Piña, [facility]- [address], [place], [address], [facility] 03/22/2020 13:46:37 OBGyn Episode Ob Episode Information Episode Created Date Number of Fetuses Patient Bloodtype Patient rh Status Prepregnancy Weight lbs Domestic Partner Domestic Partner Phone Father Name Fraternity Adviser Status 03/22/20 20 1 CLOSED Fetus Data First Name Last Name Admitted to NICU Weight (g) Sex Living Outcome Pediatric Complications Fetus ID Race Codes Race Delivery Type Full Term 2107 Vaginal Delivery Gabriel Calculation Initial Gabriel Date Initial Exam Date Initial Exam Provider Initial Ultrasound Date Last Menstrual Period Date Ultra Sound Weeks Gestation 0 Eighteen To Twenty Week Gabriel Update Ultra Sound Date Fundal Height At Umbil Quickening Date Ultra Sound Latest Weeks Gestation Final Gabriel Confirmed By Final Gabriel Confirmed Date Final Gabriel Date Ultra Sound Latest Days Gestation 0 0 Menstrual History Last Menstrual Date Menses Monthly On Bcp Conception Prior Menses Frequency Hcg Plus Date Menarche Onset Age Delivery Information Delivery Date Delivery Type Labor Anesthesia Weeks Gestation Incision Type Labor Labor Length Hrs Delivered By Post Complications Tubal Sterilization Discharge Date Comments 2 Discharge Information Feeding Method Contraceptive Method Maternal HG B and HCT Levels Ob Episode Information Episode Created Date Number of Fetuses Patient Bloodtype Patient rh Status Prepregnancy Weight lbs Domestic Partner Domestic Partner Phone Father Name Fraternity Adviser Status 03/22/20 20 1 CLOSED Fetus Data First Name Last Name Admitted to NICU Weight (g) Sex Living Outcome Pediatric Complications Fetus ID Race Codes Race Delivery Type Full Term 2108 Vaginal Delivery Gabriel Calculation Initial Gabriel Date Initial Exam Date Initial Exam Provider Initial Ultrasound Date Last Menstrual Period Date Ultra Sound Weeks Gestation 0 Eighteen To Twenty Week Gabriel Update Ultra Sound Date Fundal Height At Umbil Quickening Date Ultra Sound Latest Weeks Gestation Final Gabriel Confirmed By Final Gabriel Confirmed Date Final Gabriel Date Ultra Sound Latest Days Gestation 0 0 Menstrual History Last Menstrual Date Menses Monthly On Bcp Conception Prior Menses Frequency Hcg Plus Date Menarche Onset Age Delivery Information Delivery Date Delivery Type Labor Anesthesia Weeks Gestation Incision Type Labor Labor Length Hrs Delivered By Post Complications Tubal Sterilization Discharge Date Comments 6 Discharge Information Feeding Method Contraceptive Method Maternal HG B and HCT Levels
--- OUTSIDE RECORDS SUMMARY | 2025-01-08 09:31 | XMS_ITS | Data Portability ---
Author Organization [place] - [facility], Main Office Address [address] [place] [address] Care Team Providers Care Planer Setup Operator Name Role Phone MARVEL THAO Primary Care Provider MARVEL THAO Referring Provider Assessment Encounter Date Assessment Date Assessment LastModified by Organization Details LastModified Time 03/07/2023 03/07/2023 patient returns presents hip pain left. Pain is localized lateral aspect of the left hip it is worse with activity somewhat relieved by rest she has pain to palpation manipulation really does not have much in the way of groin pain neurologically she is intact strength is good reflexes symmetric she has internal rotation about 30 external rotation about 60 pain at the extremes. My impression patient has trochanteric pain. I injected with 20 mg Kenalog 4 cc 1% lidocaine. For prescription drug management will try prednisone taper for pain and inflammation. I will see her back in a month for follow-up discussed. rah Not available 03/07/2023 10:33:29 04/01/2023 04/01/2023 Patient returns trochanteric pain left. She has tenderness to palpation pain to manipulation of the left hip she has good motion of the hip has a negative Stinchfield test but tenderness over the palpation laterally she walks with antalgic gait she would like another injection is done with 20 mg Kenalog 4 cc 1% lidocaine for prescription drug management will try the anti-inflammatory medication for pain and inflammation. I will see her back in a month for follow-up discussed. For prescription drug management will try prednisone taper for pain and inflammation. rah Not available 04/01/2023 11:38:07 04/29/2023 04/29/2023 Patient returns she has trochanteric bursitis left hip. She got good relief the initial conservative treatment but the pain has returned. She certainly has not reached her treatment goals. She would like another injection this was done with 20 mg Kenalog 4 cc 1% lidocaine. For prescription drug management will try prednisone again for pain and inflammation. I will see her back in a month for follow-up. Apparently she is going to go to therapy as well. Discussed. Not available 04/29/2023 10:46:33 05/28/2023 05/28/2023 Patient returns hip pain left. She is tender over the trochanteric bursa has pain to palpation manipulation. She got good relief the last injection just did not last she remains symptomatic. She would like another injection today this done with 20 mg Kenalog 4 cc 1% lidocaine. For prescription drug management will change her Voltaren for pain and inflammation. She stated this with her she stopped taking the prednisone the pain came back. I will see her back in a month for follow-up she should continue with therapy in the meantime discussed. [email or web address] Not available 05/28/2023 14:41:08 Plan of Treatment Reminders Order Date Submit Date Provider Last Modified By Organization Details Last Modified Time Details Appointments None recorded. Lab None recorded. Referral None recorded. Procedures injection/a spiration joint/bursa (PROC) - in office procedure, administere d by provider 2022 023 [email or web address] In-Office Order, Internal Use Only DO Not Attach Compendium DO Not Attach Compendium, Do Not Delete/merge, [id number] 3 14:38:48 injection/a spiration joint/bursa (PROC) - in office procedure, administere d by provider 2022 023 [email or web address] In-Office Order, Internal Use Only DO Not Attach Compendium DO Not Attach Compendium, Do Not Delete/merge, [id number] 3 10:20:08 injection/a spiration joint/bursa (PROC) - in office procedure, administere d by provider 2022 023 In-Office Order, Internal Use Only DO Not Attach Compendium DO Not Attach Compendium, Do Not Delete/merge, [id number] 3 10:45:35 injection/a spiration joint/bursa (PROC) - in office procedure, administere d by provider 2022 023 [email or web address] In-Office Order, Internal Use Only DO Not Attach Compendium DO Not Attach Compendium, Do Not Delete/merge, [id number] 3 10:30:44 Surgeries None recorded. Imaging None recorded. Medication Orders Kenalog 10 mg/mL suspension for injection 2022 023 [facility]27554, [address], [place], [id number], 3 14:43:39 ropivacaine (PF) 5 mg/mL (0.5 %) injection solution 2022 023 [place] [address] [facility] #77086, [address], [place], [id number], 3 14:43:39 Kenalog 10 mg/mL suspension for injection 2022 023 [facility] #48921, [address], [place], [id number], 3 10:44:05 ropivacaine (PF) 5 mg/mL (0.5 %) injection solution 2022 023 [facility], [address], [place], [id number], 3 10:44:05 prednisone 10 mg tablets in a dose pack 2022 [address] [facility], [address], [place], [id number], 3 10:44:05 Kenalog 10 mg/mL suspension for injection 2022 023 [facility] #14239, [address], [place], [id number], 3 10:49:11 ropivacaine (PF) 5 mg/mL (0.5 %) injection solution [address] [facility]21672, [address], [place], [id number], 3 10:49:11 prednisone 10 mg tablets in a dose pack [address] [facility]22723, [address], [place], [id number], 3 11:24:03 Kenalog 10 mg/mL suspension for injection 2022 023 [facility] [address] [facility] #08105, [address], [place], [id number], 3 10:33:56 ropivacaine (PF) 5 mg/mL (0.5 %) injection solution 2022 023 [email or web address] Not available 10:40:34 Patient TargetsNo targets recorded. Patient InstructionsNo instructions recorded. Reason for Referral None Reported. Results Created Date Observation Date Name Description Value Unit Range Abnormal Flag Note LastModifiedBy Organization Detail LastModifiedTime 03/07/20 23 XR, hip + pelvi s, bilat eral, 2 view No observ ation record ed. [email or web address] Not Available 2022 10:29:55 Result Notes None recorded. Problems Name Problem SNOMED Code Status Onset Date Resolution Date Notes Provider Name and Address Organization Details Recorded Time Bilateral hip joint pain 9388823113507 9100 Active 2022 Jessica amaral, [employer] 3 10:11:34 Trochanteri c bursitis of left hip 7572769889820 03 Active 2022 Ernesto Ritter MD [address] [facility], [facility] [address], [place], [address] , [employer] 3 10:32:42 Problem Notes None recorded. Procedures Surgical History Date Name Laterality Status Provider Name and Address Organization Details Recorded Time 05/28/20 23 Ortho - Cortisone Injection completed Ernesto Ritter MD [address], [place], [address], [facility] [employer] [facility] [employer] [facility] 05/28/2023 14:40:28 04/29/20 23 Ortho - Cortisone Injection completed Ernesto Ritter MD [address], [place], [address], [facility] [employer] [facility] [employer] [facility] 04/29/2023 10:45:06 04/01/20 23 Ortho - Cortisone Injection completed Ernesto Ritter MD [address], [place], [address], [facility] [employer] [facility] [employer] [facility] 04/01/2023 11:06:16 03/07/20 23 Ortho - Cortisone Injection completed Ernesto Ritter MD [address], [place], [address], [address] [facility] [employer] [facility] 03/07/2023 10:32:34 Cholecystectomy completed Jessica Jin [facility] [employer] [facility] 03/07/2023 10:24:24 Hysterectomy completed Jessica Jin [facility] [employer] [facility] 03/07/2023 10:24:31 Cataract Surgery completed Jessica Jin [facility] [employer] [facility] 03/07/2023 10:24:39 Imaging Results Imaging Date Name Status LastModified by Organiz ation Details LastModified Time 03/07/2023 XR, hip + pelvis, bilateral, 2 view completed [email or web address] Information not available 03/07/2023 10:29:55 Procedure Notes None recorded. Medical Equipment None Reported. Allergies Allergen ID Allergen Name Allergen Category Reaction Reaction Severity Criticality Documentation Date Start Date Code Code System Note Provider Name and Address Organization Details Recorded Time 63819 codeine medicatio n Not available Not available Not available 03/07/2023 7280 RxNorm breat shaun issue s Jessica Annabel amaral, [facility] [employer] [facility] 10:20:40 Medications Name Sig Start Date Stop Date Status Note LastModified by Organization Details LastModified Time atorvastati n 40 mg tablet TAKE 1 TABLET BY MOUTH EVERY EVENING active Not Available Not Available No t Available prednisone 10 mg tablet active Not Available Not Available Not Available venlafaxine ER 75 mg capsule,ext ended release 24 hr TAKE 1 CAPSULE BY MOUTH EVERY MORNING active Not Available Not Available No t Available azithromyci n 250 mg tablet FOLLOW PACKAGE DIRECTION S active Not Available Not Available No t Available ofloxacin 0.3 % eye drops 03/07 completed Not Available Not Available Not Available metoprolol tartrate 100 mg tablet TAKE 1 TABLET BY MOUTH EVERY MORNING active Not Available Not Available No t Available lisinopril 20 mg tablet TAKE 1 TABLET BY MOUTH DAILY active Not Available Not Available No t Available chlorthalid one 25 mg tablet TAKE 1 TABLET BY MOUTH EVERY MORNING active Not Available Not Available No t Available amlodipine 5 mg tablet TAKE 1 TABLET BY MOUTH EVERY EVENING active Not Available Not Available No t Available tramadol 50 mg tablet TAKE 1 TABLET BY MOUTH THREE TIMES DAILY NEEDED active Not Available Not Available No t Available ketorolac 0.5 % eye drops 03/07 completed Not Available Not Available Not Available prednisone 10 mg tablets in a dose pack Take 1 tab by mouth, 3 times a day for 3 daysTake 1 tab by mouth 2 times a day for 2 daysTake 1 tab by mouth once a day for 1 day 2022 active Not Available Not Available Not Avai lable prednisolon e acetate 1 % eye drops,suspe nsion 03/07 completed Not Available Not Available Not Available Kenalog 10 mg/mL suspension for injection Take 20 mg by injection route. 2022 active [facility]: 0003- [phone]- 20 Not Available Not Available Not Available benzonatate 100 mg capsule TAKE 1 CAPSULE BY MOUTH TWICE DAILY NEEDED FOR COUGH active Not Available Not Available No t Available diclofenac sodium 75 mg tablet,noé yed release TAKE 1 TABLET BY MOUTH TWICE DAILY active Not Available Not Available No t Available methylpredn isolone 4 mg tablets in a dose pack FOLLOW PACKAGE DIRECTION S active Not Available Not Available No t Available albuterol sulfate HFA 90 mcg/actuati on aerosol inhaler INHALE 1 PUFF BY MOUTH EVERY 4 HOURS NEEDED FOR SHORTNESS OF BREATH OR WHEEZING active Not Available Not Available No t Available fluticasone propionate 50 mcg/actuati on nasal spray,suspe nsion SHAKE LIQUID AND USE 1 SPRAY IN EACH NOSTRIL DAILY 03/07 completed Not Available Not Available Not Available naproxen 500 mg tablet TAKE 1 TABLET BY MOUTH TWICE DAILY WITH FOOD NEEDED FOR PAIN 03/07 completed Not Available Not Available Not Available fenofibrate nanocrystal lized 48 mg tablet TAKE 1 TABLET BY MOUTH DAILY active Not Available Not Available No t Available fenofibrate nanocrystal lized 145 mg tablet active Not Available Not Available No t Available ropivacaine (PF) 5 mg/mL (0.5 %) injection solution Take 20 mg by injection route. 2022 active [facility] [phone] -[phone]- [phone] Not Available Not Available Not Available Vitals Date Recorded Body height Body mass index (BMI) Body weight Provider Name and Address Organization Details Last Updated DateTime 03/07/2023 167.64 cm 25 kg/m2 90539.82 g Jessica Jin [place] [employer] [facility] 03/07/2023 10:19:56 Date Recorded Body height Body mass index (BMI) Body weight Provider Name and Address Organization Details Last Updated DateTime 04/01/2023 167.64 cm 24.2 kg/m2 90825.86 g Yani Joseph [facility] [employer] [facility] 04/01/2023 09:54:27 Date Recorded Body height Body mass index (BMI) Body weight Provider Name and Address Organization Details Last Updated DateTime 04/29/2023 167.64 cm 25.8 kg/m2 38041.78 g Cheli Nguyen [place] [employer] [facility] 04/29/2023 09:50:22 Date Recorded Body height Body mass index (BMI) Body weight Provider Name and Address Organization Details Last Updated DateTime 05/28/2023 167.64 cm 24.9 kg/m2 28637.22 g Yani Joseph [employer] [place] [employer] [facility] 05/28/2023 14:12:41 Social History Question Answer Notes LastModified by Organizat ion Details LastModified Time Tobacco Smoking Status Current Every Day Smoker Jessica amaral [facility] [address] [facility] 03/07/2023 10:24:14 What Is Your Level Of Alcohol Consumption? Occasional Information not available 03/07/2023 What Was The Date Of Your Most Recent Tobacco Screening? 03/07/2023 [email or web address] Information not available 03/07/2023 How Much Tobacco Do You Smoke? 1 PPD [email or web address] Information not available 03/07/2023 Do You Or Have You Ever Used Any Other Forms Of Tobacco Or Nicotine? No [email or web address] Information not available 03/07/2023 Sex: Unknown Functional Status None recorded. Mental Status None recorded. Family History Relationship Description Onset Age of this Age Resolved Age Notes LastModified by Organization Details LastModified Time Unspecified Relation Family history of stroke [email or web address] Not available 03/07 10:23:16 Mother Family history of malignant neoplasm [email or web address] Not available 03/07 10:23:26 Mother Diabetes mellitus [email or web address] Not available 03/07 10:23:40 Sister Diabetes mellitus [email or web address] Not available 03/07 10:23:40 Medical History Condition Response ARTHRITIS Y HYPERTENSION Y Gynecological HistoryNo gynecological history recorded. Obstetrics History GPAL:G 0 P 0 0 0 0 Past Encounters Encounter ID Performer Location Encounter Start Date Encounter Closed Date Diagnosis/Indication Diagnosis SNOMED-CT Code Diagnosis ICD10 Code Diagnosis Note [id number] Ernesto Ritter MD [facility] [address] [place] [address] 03/07/2023 09:59:52 03/07/2023 10:56:13 Bilateral hip joint pain 5258499241 6113623 M25.551 M25.552 Trochanter ic bursitis of left hip 9394282649 91251 M70.62 [id number] Ernesto Ritter MD [facility] [address] [place] [address] 04/01/2023 09:48:20 04/01/2023 11:12:21 Bilateral hip joint pain 4005281321 4673319 M25.551 M25.552 Trochanter ic bursitis of left hip 9911519178 60129 M70.62 [id number] Ernesto Ritter MD [facility] [address] [place] [address] 04/29/2023 09:42:24 04/29/2023 10:49:22 Bilateral hip joint pain 6781846068 6311183 M25.551 M25.552 Trochanter ic bursitis of left hip 1626428220 52945 M70.62 [id number] Ernesto Ritter MD [facility] [place] [address] [facility] [address] [place] [address] 05/28/2023 14:08:08 05/28/2023 15:42:25 Bilateral hip joint pain 3507924193 3113487 M25.551 M25.552 Trochanter ic bursitis of left hip 9901555754 86465 M70.62 Health Concerns Section Related Observation LastModified by Organization Detai ls LastModified Time None Recorded Concern Status LastModified by Organization Details LastModified Time None Recorded Advance Directives Directive None Recorded Payers Encounter Date Sequence Insurance Name Policy Number Policy Li Covered Member ID Li Member ID Guarantor Name 03/07/2023 1 [place] Sugey Self [id number] Sugey Self 03/07/2023 2 [employer] [place] [employer] [place]MEDICARE [place]PPLE[place] Sugey Self [id number] Sugey Self 04/01/2023 1 [place]ugey Self [id number] Sugey Self 04/01/2023 2 [employer] [place]PP[place] Sugey Self [id number] Sugeycoleen Self 04/29/2023 1 [place] Sugey Self [id number] 2 Sugeycoleen Self 04/29/2023 2 [employer] [place] Sugey Self [id number] Sugey Self 05/28/2023 1 [place] Sugey Self [id number] 2 Sugey Self 05/28/2023 2 [employer] [place] [employer] [place]MED[place]PP[place]) Sugey Self [id number] Sugey Self Notes Date Note Type Note Provider Name and Address Organization Details Recorded Time 03/07/2023 text/html Hip(s)Reported bypatient.Location: right; lateral Quality:throbbing; superficial; frequent Severity:moderate Duration:continuous since onset Timing:occasional Context:overuse Alleviating Factors:lying down; heat; ice; rest; exercise; limited weight bearing Aggravating Factors:standing; walking; bending/squatting Associated Symptoms:no numbness; no redness; no ecchymosis; no catching/locking; no popping/clicking; no buckling; no grinding; no instability; no radiation down leg; no drainage; no fever; no chills; no weight loss; no change in bowel/bladder habits;weakness;swe lling Ernesto Ritter MD [address] [address], [place], [address], [employer] [facility] 03/07/2023 10:33:52 04/01/2023 text/html Patient returns hip pain left. She is tender over the trochanteric region. She got an injection of pills last time this seemed to take care much the pain. Unfortunately it has recurred it is tender she is tender again laterally more so than in the groin or buttock. Ernesto Ritter MD [address] [place] [address], [place], [address], [employer] 04/01/2023 11:38:23 04/29/2023 text/html Patient returns hip pain left. She has trochanteric bursitis and tenderness laterally. She got relief from the injection in the and the anti-inflammatory medication adjusted last. Ernesto Ritter MD [address] [place] [address], [place], [address], [employer] 04/29/2023 10:46:56 05/28/2023 text/html Patient returns hip pain left. She has trochanteric bursitis and tenderness laterally. She got relief from the injection in the and the anti-inflammatory medication adjusted last. Ernesto Ritter MD [address] [address], [place], [address], [address] [facility] [employer] [facility] 05/28/2023 14:41:52 OBGyn Episode No OBEpisode recorded.
[2025-01-08 10:08] LABS: Anion Gap 15 mmol/L (4-12); Blood Urea Nitrogen 54 mg/dL (7-17); Calcium 9.3 mg/dL (8.4-10.2); Carbon Dioxide 22 mmol/L (22-30); Chloride 95 mmol/L (98-107); Estimated Glomerular Filt Rate 12; Glucose 85 mg/dL (65-110); Potassium 4.3 mmol/L (3.4-5.0); Sodium 132 mmol/L (137-145)
== END 2025-01-08 09:06 | disposition home or self-care (01) ==
PROVIDERS: PCP Emergency Medicine; Visit Provider Anesthesiology
DX: Z01.818 Encounter for other preprocedural examination (principal); R00.1 Bradycardia, unspecified; I44.0 Atrioventricular block, first degree
CPT/HCPCS: 36415; 80048; 93005

== ENCOUNTER 2025-01-14 05:51 | Day surgery (SDC) | payer MEDICARE, OTHER, SELFPAY ==
[2025-01-06 10:28] VITALS: BMI 24.8
--- OUTSIDE RECORDS SUMMARY | 2025-01-14 05:54 | XMS_ITS | Data Portability ---
Author Organization [facility] [place] Address [address] [place] [address] [place] [address] Assessment Encounter Date Assessment Date Assessment LastModified [...] urinalysis , dipstick 2019 020 cfriederic h1 [address], [address], [place], [address], 0 12:49:42 Referral None recorded. Procedures None recorded. Surgeries None recorded. Imaging DEXA, axial skeleton + vertebral fracture assessment 2019 020 [facility], [facility] [facility] [address], [place], [address], 0 15:02:18 Medication Orders Effexor XR 75 mg capsule,ex tended release 2019 020 INTERFACE [facility] [facility] [facility], [place], [address], 0 13:46:44 Patient TargetsNo targets recorded. Patient InstructionsNo instructions recorded. Reason for Referral None Reported. Results Created Date Observation Date Name Description Value Unit Range Abnormal Flag Note LastModifiedBy Organization Detail LastModifiedTime 03/22/20 20 03/23/2020 cultu re, urine specimen source Urine - Void Not Available [facility]) [address], [place], [address], 03/25/2020 12:10:23 03/22/20 20 03/23/2020 cultu re, urine culture, urine See Below See Micro biolo gy Repor t Not Available [facility] ([facility]) [address], [place], [address], 03/25/2020 12:10:23 03/22/20 20 03/23/2020 cultu re, urine escherichia coli esbl 15,000 -25,00 0 CFU/ml Escher ichia coli ESBL This isola te is a confi rmed ESBL (Exte nded Spect rum Beta- Lacta imelda) produ cer and shoul d be consi dered clini maude resis tant to all penic illin s, cepha lospo rins and aztre onam. Not Available [facility] ([facility]) [address], [place], [address], 03/25/2020 12:10:23 03/22/20 20 03/23/2020 cultu re, urine sensitivity panel See Below ___ Organ ism E.col i ESBL Antib iotic INTER P ___ Amika noe S Amp/S ulbac benitez I Ampic illin R Aztre onam R Cefaz emeka R Cefep kaykay R Cefox itin S Cefta zidim e R Ceftr iaxon e R Cefur oxime R Cipro floxa neo R Ertap enem S Genta micin S Imipe nem S Levof loxac in R Merop enem S Nitro furan toin S Piper acill in/Ta zo S Tetra cycli ne S Tigec yclin e S Tobra mycin S Trime th/Maurice lfa S __ S=PROSPER CEPTI BLE I=INT ERMED IATE R=RES ISTAN T Not Available [facility] [address] [facility], [place], [address], 03/25/2020 12:10:23 03/22/20 20 03/22/2020 urina lysis , dipst ick Leukocytes trace Not Available [facility] [address], [place], [address], 03/22/2020 12:39:34 03/22/20 20 03/22/2020 urina lysis , dipst ick Nitrite neg Not Available [facility] [address], [place], [address], 03/22/2020 12:39:34 03/22/20 20 03/22/2020 urina lysis , dipst ick Blood ++ Not Available [facility] [address], [place], [address], 03/22/2020 12:39:34 03/22/20 20 03/22/2020 urina lysis , dipst ick Leukocytes trace Not Available Fiorella lopes [address], [place], [address], 03/22/2020 12:37:36 06/0903/22/2020 urina lysis , dipst ick Nitrite neg Not Available [facility] [address], [place], [address], 03/22/2020 12:37:36 03/22/20 20 03/22/2020 urina lysis , dipst ick Blood ++ Not Available [facility] [address], [place], [address], 03/22/2020 12:37:36 06/03/20 20 06/03/2020 MAMMO , scree kari, bilat eral No observ ation record ed. [facility] [address], [place], [address], 06/07/2020 18:06:12 06/13/20 20 DEXA, axial skele ton + verte bral fract ure asses sment No observ ation record ed. [facility] [address], [place], [address], 06/22/2020 16:28:43 Result Notes None recorded. Problems Name Problem SNOMED Code Status Onset Date Resolution Date Notes Provider Name and Address Organization Details Recorded Time SNOMED CT Concept Active 2015 Encntr for general adult medical exam w/o abnormal findings;R ecorded Elsewhere: No Locatio n: [facility] rce: EHR Chroni c: N Practice ID: 0001 Billa ble Time: 10:00:00 AM Not Available [facility] 0 21:21:31 Microscop ic hematuria 928044638 Active 2015 Other microscopi c hematuria; Recorded Elsewhere: No Locatio n: [facility] rce: EHR Chroni c: N Practice ID: 0001 Billa ble Time: 10:00:00 AM Not Available [facility] 0 21:21:[address] Concept Active 2018 Well woman check w/o abnormal finding;Re corded Elsewhere: No Locatio n: [facility] rce: EHR Chroni c: N Practice ID: 0001 Billa ble Time: 11:00:00 AM Not Available [facility] 0 21:21:32 Specializ ed medical examinati on Active 2013 Gynecologi viktoria Examinatio n;Recorded Elsewhere: No Locatio n: [facility] rce: EHR Chroni c: N Practice ID: 0001 Billa ble Time: 02:30:00 PM Not Available [facility] 0 21:21:32 Screening for malignant neoplasm of rectum Active 2017 Encounter for screening for malignant neoplasm of rectum;Rec orded Elsewhere: No Locatio n: [facility] rce: EHR Chroni c: N Practice ID: 0001 Billa ble Time: 11:30:00 AM Not Available [facility] 0 21:21:32 Evaluatio n finding Active 2016 Hematuria, unspecifie d;Recorded Elsewhere: No Locatio n: [facility] rce: EHR Chroni c: N Practice ID: 0001 Billa ble Time: 11:30:00 AM Not Available [facility] 0 21:21:32 Adult health examinati on Active 2014 ROUTINE MEDICAL EXAM;Recor ded Elsewhere: No Locatio n: [facility] rce: EHR Chroni c: N Practice ID: 0001 Billa ble Time: 09:00:00 AM Not Available [facility] 0 21:21:32 Urinary tract infectiou s disease 59781534 Active 2015 UTI;Record ed Elsewhere: No Locatio n: [facility] rce: EHR Chroni c: N Practice ID: 0001 Billa ble Time: 10:00:00 AM Not Available [facility] 0 21:21:32 Screening for malignant neoplasm of cervix Active 2011 Screening for malignant neoplasms of the cervix;Rec orded Elsewhere: No Locatio n: [facility] rce: EHR Chroni c: N Practice ID: 0001 Billa ble Time: 03:30:00 PM Not Available [facility] 0 21:21:33 Radiologi c finding 654985039 Active 2018 Oth abn and inconclusi ve findings on dx imaging of breast;Rec orded Elsewhere: No Locatio n: [facility] Johana rce: EHR Chroni c: N Practice ID: 0001 Billa ble Time: 08:19:32 AM Not Available [facility] 0 21:[facility]:[address] Concept Active 2016 Encounter for general adult medical exam w abnormal findings;P ractice ID: 0001 Not Available [facility] 0 21:21:36 Problem Notes None recorded. Procedures Surgical History Date Name Laterality Status Provider Name and Address Organization Details Recorded Time 10/14/19 06 Colonoscopy completed [facility] 03/22/2020 12:43:46 10/14/19 03 Total Hysterectomy completed [facility] 03/22/2020 12:54:27 10/14/18 99 LEEP completed [facility] 03/22/2020 12:42:53 10/14/18 62 hernia repair completed [facility] 03/22/2020 12:42:37 Cholecystectomy completed [facility] 03/22/2020 12:42:08 Imaging Results Imaging Date Name Status LastModified by Organiz ation Details LastModified Time 06/03/2020 MAMMO, screening, bilateral completed [facility] [address], [place], [address], 06/07/2020 18:06:12 06/13/2020 DEXA, axial skeleton + vertebral fracture assessment completed [facility] [address], [place], [address], 06/22/2020 16:28:43 Procedure Notes None recorded. Medical Equipment None Reported. Allergies Allergen ID Allergen Name Allergen Category Reaction Reaction Severity Criticality Documentation Date Start Date Code Code System Note Provider Name and Address Organization Details Recorded Time 925 codeine medicatio n Not available Not available Not available 03/22/2020 2330 RxNorm Selena Mcaley null, [facility] 0 12:24:47 926 nitrofura ntoin medicatio n Not available Not available Not available 03/22/2020 7454 RxNorm Selena amaral, [facility] 0 12:24:55 Medications Name Sig Start Date Stop Date Status Note LastModified by Organization Details LastModified Time atorvasta tin 40 mg tablet active Not Available Not Available Not Available atorvasta tin 20 mg tablet take 1 tablet by oral route every day 2018 active Prescrib ed Elsewher e: Yes Loca tion: [facility] odify By: aba pedrozaunttj DateTime : 02/05/20 [...] Prescrib ed Elsewher e: Yes Loca tion: [facility] odify By: kylah Issa nttj DateTime : 12/30/19 12 09:39:28 PM Not Available Not Available Not Available ibuprofen 200 mg capsule take 1 capsule by oral route every 6 hours as needed 01/01 completed Prescrib ed Elsewher e: Yes Loca tion: [facility] odify By: gail Wilks ncounttj DateTime : 12/30/19 12 09:39:28 PM Not Available Not Available Not Available Effexor XR 37.5 mg capsule,e xtended release take 1 capsule by oral route every day with food 01/01 completed Prescrib ed Elsewher e: Yes Loca tion: [facility] odify By: kylah Issa nter DateTime : 12/30/19 12 09:39:28 PM Not Available Not Available Not Available chlorthal idone 25 mg tablet active Not Available Not Available No t Available amlodipin e 5 mg tablet take 1 tablet by oral route every day active Prescrib ed Elsewher e: Yes Loca tion: [facility] odify By: dung pedrozaunttj DateTime : 02/04/20 18 11:30:00 AM Not Available Not Available Not Available Macrobid 100 mg capsule take 1 capsule by oral route every 12 hours with food 2018 active Prescrib ed Elsewher e: No Locat ion: [facility] odify By: kylah Tomou nter DateTime : 02/08/20 19 09:53:26 PM Not Available Not Available Not Available hydrochlo rothiazid e 12.5 mg capsule take 2 capsule by oral route every day active Prescrib ed Elsewher e: Yes Loca tion: [facility] odify By: kylah Issa nter DateTime : 12/30/19 12 09:39:28 PM Not Available Not Available Not Available Lipitor 10 mg tablet take 1 tablet by oral route every day active Prescrib ed Elsewher e: Yes Loca tion: [facility] odify By: kylah Tomou nter DateTime : 12/30/19 12 09:39:28 PM Not Available Not Available Not Available niacin ER 125 mg capsule,e xtended release take 1 capsule by oral route 3 times every day with meals active Prescrib ed Elsewher e: Yes Loca tion: [facility] odify By: geri javed DateTime : 01/26/20 [...] Elsewher e: No Locat ion: [facility] odify By: kylah Tomou nter DateTime : [...] Prescrib ed Elsewher e: Yes Loca tion: [facility] odify By: geri javed DateTime : 01/26/20 15 09:00:00 AM Not Available Not Available Not Available Vitals Date Recorded Body height Body mass index (BMI) Body weight Systolic blood pressure Diastolic blood pressure Provider Name and Address Organization Details Last Updated DateTime 03/22/2020 167.64 cm 27.4 kg/m2 46355.7 g 148 mm[Hg] 70 mm[Hg] [facility] 0 12:24:26 Social History None recorded. [...] ICD10 Code Diagnosis Note [id number] Raiza Piña [facility] [address] [address] 03/22/2020 12:17:05 03/22/2020 13:21:32 Postmenopausal state 52266774 Z78.0 Gynecologi c examination 59520556 Z01.419 Take Calcium with Vitamin D 12-1500mg daily. Do monthly self breast exams. It is advised to get annual flu shot in the fall and she could obtain at [facility] or [facility]. If you haven't received the Tdap vaccine [...] and urine screened q6mos. Screening for osteoporosis 941444189 Z13.820 Blood in urine 40266133 R31.9 Health Concerns Section Related Observation LastModified by Organization Detai ls LastModified Time None Recorded Concern Status LastModified by Organization Details LastModified Time None Recorded Advance Directives Directive None Recorded Payers Encounter Date Sequence Insurance Name Policy Number Policy Li Covered Member ID Li Member ID Guarantor Name 03/22/2020 1 [place] Sugey Self [id number] 2 03/22/2020 2 [employer] Self [id number] Notes Date Note Type Note Provider Name [...] to date on colonoscopy screening Raiza Piña, [facility]- [address], [place], [address], [facility] 03/22/2020 13:46:37 OBGyn Episode Ob Episode Information Episode Created Date Number of Fetuses Patient Bloodtype Patient rh Status Prepregnancy Weight lbs Domestic Partner Domestic Partner Phone Father Name Restaurant Managing Partner Status 03/22/20 20 1 CLOSED Fetus Data [...] Domestic Partner Domestic Partner Phone Father Name Restaurant Managing Partner Status 03/22/20 20 1 CLOSED Fetus Data [...]
--- OUTSIDE RECORDS SUMMARY | 2025-01-14 05:55 | XMS_ITS | Data Portability ---
Author Organization [place] - [facility] [employer], Main Office Address [address] [place] [address] Care Team Providers Care Gift Shop Manager Name Role Phone MARVEL THAO Primary Care [...] to go to therapy as well. Discussed. [email or web address] Not available 04/29/2023 10:46:33 05/28/2023 05/28/2023 Patient [...] continue with therapy in the meantime discussed. [email or web address] Not available 05/28/2023 14:41:08 Plan of Treatment Reminders Order Date Submit Date Provider Last Modified By Organization Details Last Modified Time Details Appointments None recorded. Lab None recorded. Referral None recorded. Procedures injection/a spiration joint/bursa (PROC) - in office procedure, administere d by provider 2022 023 [email or web address] In-Office Order, Internal Use Only DO Not Attach Compendium DO Not Attach Compendium, Do Not Delete/merge, [id number] 3 14:38:48 injection/a spiration joint/bursa (PROC) - in office procedure, administere d by provider 2022 023 [email or web address] In-Office Order, Internal Use Only DO Not Attach Compendium DO Not Attach Compendium, Do Not Delete/merge, [id number] 3 10:20:08 injection/a spiration joint/bursa (PROC) - in office procedure, administere d by provider 2022 023 [email or web address] In-Office Order, Internal Use Only DO Not Attach Compendium DO Not Attach Compendium, Do Not Delete/merge, [id number] 3 10:45:35 injection/a spiration joint/bursa (PROC) - in office procedure, administere d by provider 2022 023 [email or web address] In-Office Order, Internal Use Only DO Not Attach Compendium DO Not Attach Compendium, Do Not Delete/merge, [id number] 3 10:30:44 Surgeries None recorded. Imaging None recorded. Medication Orders Kenalog 10 mg/mL suspension for injection 2022 023 [employer] [facility]117, [address], [place], [id number], 3 14:43:39 ropivacaine (PF) 5 mg/mL (0.5 %) injection solution 2022 023 [place] [address] [facility] #74458, [address], [place], [id number], 3 14:43:39 Kenalog 10 mg/mL suspension for injection 2022 023 [employer] [facility] #65624, [address], [place], [id number], 3 10:44:05 ropivacaine (PF) 5 mg/mL (0.5 %) injection solution 2022 023 [employer] [facility], [address], [place], [id number], 3 10:44:05 prednisone 10 mg tablets in a dose pack 2022 023 [address] [facility], [address], [place], [id number], 3 10:44:05 Kenalog 10 mg/mL suspension for injection 2022 023 [employer] [facility] #19553, [address], [place], [id number], 3 10:49:11 ropivacaine (PF) 5 mg/mL (0.5 %) injection solution [address] [facility]54429, [address], [place], [id number], 3 10:49:11 prednisone 10 mg tablets in a dose pack [address] [facility] #92268, [address], [place], [id number], 3 11:24:03 Kenalog 10 mg/mL suspension for injection 2022 023 [facility] #44219, [address], [place], [id number], 3 10:33:56 ropivacaine (PF) 5 mg/mL (0.5 [...] Details Recorded Time Bilateral hip joint pain 1971822609550 9100 Active 2022 Jessica amaral, [employer] 3 10:11:34 Trochanteri c bursitis of left hip 1602143778328 03 Active 2022 Ernesto Ritter MD [address] [facility], [facility] [address], [place], [address] , [employer] 3 10:32:42 Problem Notes None recorded. Procedures Surgical History Date Name Laterality Status Provider Name and Address Organization Details Recorded Time 05/28/20 23 Ortho - Cortisone Injection completed Ernesto Ritter MD [address], [address], [place], [address], [facility] [employer] [facility] [employer] [facility] 05/28/2023 14:40:28 04/29/20 23 Ortho - Cortisone Injection completed Ernesto Ritter MD [address], [place], [address], [facility] [employer] [facility] [employer] [facility] 04/29/2023 10:45:06 04/01/20 23 Ortho - Cortisone Injection completed Ernesto Ritter MD [address], [place], [address], [facility] [employer] [facility] [employer] [facility] 04/01/2023 11:06:16 03/07/20 23 Ortho - Cortisone Injection completed Ernesto Ritter MD [address], [place], [address], [employer] [facility] [employer] [facility] 03/07/2023 10:32:34 Cholecystectomy completed Jessica Jin [facility] [employer] [facility] 03/07/2023 10:24:24 Hysterectomy completed Jessica Jin [facility] [employer] [facility] 03/07/2023 10:24:31 Cataract Surgery completed Jessica Jin [facility] [employer] [facility] 03/07/2023 10:24:39 Imaging Results Imaging Date Name [...] Name and Address Organization Details Recorded Time 09048 codeine medicatio n Not available Not available Not available 03/07/2023 5440 RxNorm breat shaun issue s Jessica Annabel amaral, [facility] [employer] [facility] 10:20:40 Medications Name Sig Start Date Stop [...] 20 mg by injection route. 2022 active [facility]: 0003- 0494- 20 Not Available Not Available [...] 20 mg by injection route. 2022 active [facility] 59172 -064- 01 Not Available Not Available Not Available Vitals Date Recorded Body height Body mass index (BMI) Body weight Provider Name and Address Organization Details Last Updated DateTime 03/07/2023 167.64 cm 25 kg/m2 53144.82 g Jessica Jin [place] [employer] [facility] [employer] 03/07/2023 10:19:56 Date Recorded Body height Body mass index (BMI) Body weight Provider Name and Address Organization Details Last Updated DateTime 04/01/2023 167.64 cm 24.2 kg/m2 15165.86 g Yani Joseph [facility] [employer] [facility] [employer] 04/01/2023 09:54:27 Date Recorded Body height Body mass index (BMI) Body weight Provider Name and Address Organization Details Last Updated DateTime 04/29/2023 167.64 cm 25.8 kg/m2 41171.78 g Cheli Nguyen [place] [employer] [facility] [employer] 04/29/2023 09:50:22 Date Recorded Body height Body mass index (BMI) Body weight Provider Name and Address Organization Details Last Updated DateTime 05/28/2023 167.64 cm 24.9 kg/m2 70357.22 g Yani Joseph CAMPAIGN SPECIALIST [place] [employer] [facility] [employer] 05/28/2023 14:12:41 Social History Question Answer Notes LastModified by Organizat ion Details LastModified Time Tobacco Smoking Status Current Every Day Smoker Jessica amaral [employer] [facility] [employer] 03/07/2023 10:24:14 What Is Your Level Of Alcohol Consumption? Occasional [email or web address] Information not available 03/07/2023 What Was The Date Of Your Most Recent Tobacco Screening? 03/07/2023 [email or web address] Information not available 03/07/2023 How Much Tobacco Do You Smoke? 1 PPD [email or web address] Information not available 03/07/2023 Do You Or Have You Ever Used Any Other Forms Of Tobacco Or Nicotine? No [email or web address] Information not available 03/07/2023 Sex: Unknown Functional Status None recorded. Mental Status None recorded. Family History Relationship Description Onset Age of this Age Resolved Age Notes LastModified by Organization Details LastModified Time Unspecified Relation Family history of stroke [email or web address] Not available 03/07 10:23:16 Mother Family history of malignant neoplasm [email or web address] Not available 03/07 10:23:26 Mother Diabetes mellitus [email or web address] Not available 03/07 10:23:40 Sister Diabetes mellitus [email or web address] Not available 03/07 10:23:40 Medical History Condition Response ARTHRITIS Y HYPERTENSION Y Gynecological HistoryNo gynecological history recorded. Obstetrics History GPAL:G 0 P 0 0 0 0 Past Encounters Encounter ID Performer Location Encounter Start Date Encounter Closed Date Diagnosis/Indication Diagnosis SNOMED-CT Code Diagnosis ICD10 Code Diagnosis Note [id number] Ernesto Ritter MD [facility] [address] [place] [address] 03/07/2023 09:59:52 03/07/2023 10:56:13 Bilateral hip joint pain 6946668475 9469660 M25.551 M25.552 Trochanter ic bursitis of left hip 6837290898 61336 M70.62 [id number] Ernesto Ritter MD [facility] [address] [place] [address] 04/01/2023 09:48:20 04/01/2023 11:12:21 Bilateral hip joint pain 3618822602 2175889 M25.551 M25.552 Trochanter ic bursitis of left hip 4895785596 75645 M70.62 [id number] Ernesto Ritter MD [facility] [address] [place] [address] 04/29/2023 09:42:24 04/29/2023 10:49:22 Bilateral hip joint pain 1685383414 2028574 M25.551 M25.552 Trochanter ic bursitis of left hip 5769540968 92404 M70.62 [id number] Ernesto Ritter MD [facility] [address] [facility] [address] [place] [address] 05/28/2023 14:08:08 05/28/2023 15:42:25 Bilateral hip joint pain 5578785524 1759423 M25.551 M25.552 Trochanter ic bursitis of left hip 6246323898 07159 M70.62 Health Concerns Section Related Observation LastModified by Organization Detai ls LastModified Time None Recorded Concern Status LastModified by Organization Details LastModified Time None Recorded Advance Directives Directive None Recorded Payers Encounter Date Sequence Insurance Name Policy Number Policy Li Covered Member ID Li Member ID Guarantor Name 03/07/2023 1 [place] Sugey Self [id number] 2 Sugey Self 03/07/2023 2 [employer] (MEDICARE SUPPLEMENT) Sugey Self [id number] Sugey Self 04/01/2023 1 [place] Self [id number] 2 Sugey Self 04/01/2023 2 [employer] (MEDICARE SUPPLEMENT) Sugey Self [id number] Sugeycoleen Self 04/29/2023 1 [place] Self [id number] 2 Sugeycoleen Self 04/29/2023 2 [employer] (MEDICARE SUPPLEMENT) Sugey Self [id number] Sugey Self 05/28/2023 1 [place]uge[place] Self [id number] 2 Sugey Self 05/28/2023 2 [employer] (MEDICARE SUPPLEMENT) Sugey Self [id number] Sugey Self Notes Date Note Type Note [...] lling Ernesto Ritter MD [address] [address], [place], [address], [employer] [facility] 03/07/2023 10:33:52 04/01/2023 text/html Patient returns hip pain left. She is tender over the trochanteric region. She got an injection of pills last time this seemed to take care much the pain. Unfortunately it has recurred it is tender she is tender again laterally more so than in the groin or buttock. Ernesto Ritter MD [address] [address], [place], [address], [employer] 04/01/2023 11:38:23 04/29/2023 text/html Patient returns hip pain left. She has trochanteric bursitis and tenderness laterally. She got relief from the injection in the and the anti-inflammatory medication adjusted last. Ernesto Ritter MD [address] [address], [place], [address], [employer] 04/29/2023 10:46:56 05/28/2023 text/html Patient returns hip pain left. She has trochanteric bursitis and tenderness laterally. She got relief from the injection in the and the anti-inflammatory medication adjusted last. Ernesto Ritter MD [address] [address], [place], [address], [employer] [facility] [employer] [facility] 05/28/2023 14:41:52 OBGyn Episode No OBEpisode recorded.
--- OUTSIDE RECORDS SUMMARY | 2025-01-14 05:55 | XMS_ITS | Clinical Summary ---
Author Organization [facility] Address [address] [place] [address] Phone Care Team Providers Care Cyber Security Name Role Phone Joshua Bond MD Primary Care Provider [phone] Allergies Active Allergy Reactions Criticality Noted Date [...] 2017 Influenza Vaccine (#1) 2024 Care Teams Cyber Security Relationship Specialty Start Date End Date Joshua Bond MD [address] [place] [address] PCP - General Internal Medicine 04/11/22
[2025-01-14 06:19] VITALS: BMI 25.9
[2025-01-14 06:20] VITALS: BP 166/68; PULSE 50; RESP 18; TEMP 36.4; O2SAT 99
--- NOTE | 2025-01-14 06:39 | WPDHPUPDATE1 ---
History and Physical Update Update Date/Time: 01/14/25 06:39 Patient seen and examined in pre-operative holding area. No interval change in medical history or symptoms. Patient recalls previous discussion of benefits and alternatives to procedure. Continues to desire to proceed with left volar wrist ganglion cyst excision. Reviewed procedure, post-op expectations and risks including but not limited to bleeding, infection, injury to tendon/nerve/vessel, decreased hand function, stiffness, RSD, no change or worsening of symptoms, recurrence. I discussed the possible use of assistants and their participation in the case. Patient stated understanding and signed the consent form wishing to proceed.
--- NOTE | 2025-01-14 06:39 | W.PM.PROC2 ---
Procedure Note - Detailed Date of Procedure 01/14/25 Pre-op Diagnosis Ganglion Cyst Left Volar Wrist Post-op Diagnosis Same (and left fcr ganglion cyst) Procedure Performed left volar wrist and separate fcr ganglion cyst excision Surgeon Hernandez Morales MD Mechanical Assembly Technician su flowers pa-c Anesthesia MAC Description of Procedure INFORMED CONSENT: The patient was seen and examined and marked in the pre-op area.? The patient signed the consent form. PROCEDURE IN DETAIL:The patient taken back to OR on the stretcher in supine position. Time out performed with anesthesia, surgeon and staff agreeing on patient's name site and surgery to be performed SCDs were placed on the lower extremities and inflated. A tourniquet was placed on {left} upper extremity and antibiotics given IV After anesthesia administered sedation I injected {5}cc 1%lido with epi and 0.5% marcaine plain at the operative site The?{left upper extremity}?was prepped and draped in sterile fashion the??{left upper extremity} was? exsanguinated with Esmarch bandage and tourniquet inflated to 250mmHg I made a an incision over the left volar wrist mass through skin and dermis with a 15 blade scalpel. I dissected through subcutaneous tissue with Littler scissors down to the lobulated mass which had greatly distorted anatomy and proceeded with circumferential dissection of the cystic mass which was closely adherent to the radial artery. The tourniquet was let down and the mass was dissected off the artery and transected near its base by the volar wrist capsule with bipolar cautery. I identified a second ganglion cyst arising from the fcr tendon sheath which did not appear to be contiguous or connected the the primary cyst. This cystic mass was resected off the fcr tendon with 15 blade and bipolar cautery. I irrigated with normal saline. Skin was closed with 4-0 Vicryl and 4-0 Monocryl. A dressing of Dermabond, 4x4, gt, and a volar splint was applied for patient safety, security, and comfort and secured with an uma bandage. The hand was warm and well perfused. The patient was then awaken from anesthesia and transferred to the recovery room in stable condition.? Complications - none EBL- 0cc Disposition - home in stable conditions su Flowers PA-C was essential for positioning, retraction, closure and dressing placement [facility] Billing Surgery - Charge Forward: Surgery Billing ([id number] same for su adding modifier )
[2025-01-14] MEDS: LACTATED RINGERS 1,000 ML 30 ML IV CONT (07:03)
--- NOTE | 2025-01-14 07:12 | WPDANESEPPF ---
Anes - Initial Pre Proc Eval Procedure: Operation Date: 01/14/25 07:30 Proposed Procedures p Excision Ganglion Cyst Left Volar Wrist - Hernandez Morales MD Date/Time: 01/14/25 07:12 Surgeon: Hernandez Morales MD Pre Op Diagnosis: Ganglion Cyst Left Volar Wrist Patient Data Age: 74 Gender: F Height: 1.7 m Weight: 75.3 kg Last Vital Signs Temp 36.4 C 01/14/25 06:20 Pulse 50 L 01/14/25 06:20 Resp 18 01/14/25 06:20 BP 166/68 H 01/14/25 06:20 Pulse Ox 99 01/14/25 06:20 O2 Del Method Room Air 01/14/25 06:20 Allergies Allergy/AdvReac Type Severity Reaction Status Date / Time codeine Allergy Intermediate HEAVY Verified 01/14/25 06:06 FEELING ON CHEST hydrocodone Allergy Intermediate Rash Verified 01/14/25 06:06 Home Medications ?Medication ?Instructions ?Recorded ?Confirmed ?Type aspirin 81 mg tablet,delayed 81 mg PO DAILY 02/28/21 01/14/25 History release fluticasone propionate 50 1 spray intranasal DAILY #16 grams 01/23/23 01/14/25 Rx mcg/actuation nasal spray,suspension (Flonase Allergy Relief) metoprolol tartrate 100 mg tablet See Rx Instructions .Route 06/09/24 01/14/25 Rx .COMPLEX #90 tabs chlorthalidone 25 mg tablet See Rx Instructions .Route 07/28/24 01/14/25 Rx .COMPLEX #90 tabs albuterol sulfate 90 mcg/actuation See Rx Instructions .Route 11/02/24 01/14/25 Rx aerosol inhaler .COMPLEX #8.5 grams amlodipine 10 mg tablet (Norvasc) 10 mg PO DAILY #90 tabs 11/02/24 01/14/25 Rx venlafaxine 75 mg capsule,extended See Rx Instructions .Route 11/16/24 01/14/25 Rx release 24 hr .COMPLEX #90 caps rosuvastatin 40 mg tablet 40 mg PO DAILY #30 tabs 12/14/24 01/14/25 Rx tramadol 50 mg tablet 50 mg PO TID PRN pain #30 tabs 01/11/25 01/14/25 Rx Patient hx anesthesia problems: none Family hx anesthesia problems: none Results Review: All pre-operative results and documents have been reviewed as part of the pre-operative evaluation. [facility] Past Medical History Medical History Sinusitis, chronic Ear pressure Cholecystectomy planned (~2000) History of sinus problem Ear discharge Blurred vision Lack of bladder control Blood in urine Vaginal infection History of one miscarriage Chicken pox Bronchitis Surgical History Surgical History H/O: hysterectomy (~2002) Family History Family History Father , 49 Hepatic sclerosis Mother , 77 Diabetes mellitus Renal failure Social History Social History Social History: Patient drinks 2 pots of coffee per day. Smoking packs per day: 0.5 Smoking cigarettes per day: 10.0 Smoking status: Current every day smoker Tobacco type: cigarettes Alcohol intake: current Alcohol use details: Patient drinks alcohol rarely Substance use: never Substance use type: does not use Do You Feel Safe in your Home?: Yes Lack of Transportation: No Lack of Food: Never True Current Housing: I Have Housing Concerned About Future Housing: No Difficulty Paying Gas/Electric Bills: No Difficulty Paying for Meds: No Currently Unemployed: No Education: High School Diploma/GED Difficulty w/ Childcare or Family Care: No Living arrangements: with family Occupation/Education: retired Gender identity (if verbalized by the patient): Female Sexual Orientation (if Verbalized by the Patient): Straight or Heterosexual Spiritual care concerns: No Anes - Eval Final PreProcedure Day of Procedure 01/14/25 07:12 Patient weight: normal Heart: regular rate and rhythm Lungs: clear to auscultation Airway: Mallampati scale class II Neurological: alert and oriented Last oral intake: >/= 8 hours ASA classification: III Emergent: no Anesthetic plan: proceed Anesthesia type and monitoring: general GIVS and standard monitoring Results Review: All pre-operative results and documents have been reviewed as part of the pre-operative evaluation. Informed Consent: The patient's anesthetic plan and its attendant risks and benefits were discussed with the patient/family/POA. Questions were solicited and answers provided to the satisfaction of the patient/family/POA.
[2025-01-14] MEDS: ceFAZolin SODIUM 2 GM/20 ML SW SYRINGE IV PUSH (07:23)
[2025-01-14] MEDS: BUPivacaine HCL 0.5% PF 30 ML VIAL 5 ML INFILTRATE (07:36)
[2025-01-14] MEDS: LIDO 1%/EPINEPHRINE 1:100,000 10 ML VIAL 5 ML INFILTRATE (07:36)
[2025-01-14 07:50] VITALS: BP 112/58; PULSE 56; RESP 18; O2SAT 100
--- NOTE | 2025-01-14 07:59 | WPDANESPN ---
Anes - Prog Note Post-Op Date/Time: 01/14/25 07:59 Cardiovascular status: normal Respiratory status: normal Airway patency: baseline Mental status: baseline Post-Op hydration status: normal Vital Signs: Last Vital Signs Temp 36.4 C 01/14/25 06:20 Pulse 56 L 01/14/25 07:50 Resp 18 01/14/25 07:50 BP 112/58 L 01/14/25 07:50 Pulse Ox 100 01/14/25 07:50 O2 Del Method Room Air 01/14/25 07:50 Pain Score (VAS): 0/10 Patient Feedback: Patient satisfied with anesthetic care.
[2025-01-14 08:00] VITALS: BP 135/61; PULSE 54; RESP 18; O2SAT 100
[2025-01-14 08:10] VITALS: BP 154/60; PULSE 54; RESP 15; O2SAT 100
[2025-01-14 08:20] VITALS: BP 166/69; PULSE 54; RESP 14; O2SAT 97
== END 2025-01-14 08:30 | disposition home or self-care (01) ==
PROVIDERS: PCP Emergency Medicine; Visit Provider Plastic Surgery
PROC: (CPT 25111; principal; 2025-01-14 07:30)
DX: M67.432 Ganglion, left wrist (principal); M67.442 Ganglion, left hand
CPT/HCPCS: 25111; 26160

== ENCOUNTER 2025-01-14 10:03 | Outpatient (NON) | payer MEDICARE, OTHER, SELFPAY ==
--- OUTSIDE RECORDS SUMMARY | 2025-01-15 10:28 | XMS_ITS | Data Portability ---
Author Organization [facility] [place] Address [address] [place] [address] [place] [address] Assessment Encounter Date Assessment Date Assessment LastModified [...] urinalysis , dipstick 2019 020 cfriederic h1 [place], [address], [place], [address], 0 12:49:42 Referral None recorded. Procedures None recorded. Surgeries None recorded. Imaging DEXA, axial skeleton + vertebral fracture assessment 2019 020 [facility], [facility] [address], [place], [address], 0 15:02:18 Medication Orders Effexor XR 75 mg capsule,ex tended release 2019 020 INTERFACE [facility] [facility], [place], [address], 0 13:46:44 Patient TargetsNo targets recorded. Patient InstructionsNo instructions recorded. Reason for Referral None Reported. Results Created Date Observation Date Name Description Value Unit Range Abnormal Flag Note LastModifiedBy Organization Detail LastModifiedTime 03/22/20 20 03/23/2020 cultu re, urine specimen source Urine - Void Not Available [facility] ([facility]) [address], [place], [address], 03/25/2020 12:10:23 03/22/20 20 03/23/2020 cultu re, urine culture, urine See Below See Micro biolo gy Repor t Not Available [facility] ([facility]) [address], [place], [address], 03/25/2020 12:10:23 03/22/20 20 03/23/2020 cultu re, urine escherichia coli esbl 15,000 -25,00 0 CFU/ml Escher ichia coli ESBL This isola te is a confi rmed ESBL (Exte nded Spect rum Beta- Lacta imelda) produ cer and shoul d be consi dered clini maude resis tant to all penic illin s, cepha lospo rins and aztre onam. Not Available [facility] ([facility]) [address], [place], [address], 03/25/2020 12:10:23 03/22/20 20 03/23/2020 cultu re, [...] R=RES ISTAN T Not Available [facility]) [address] [facility], [place], [address], 03/25/2020 12:10:23 03/22/20 20 03/22/2020 urina lysis , dipst ick Leukocytes trace Not Available [facility] [address], [place], [address], 03/22/2020 12:39:34 03/22/20 20 03/22/2020 urina lysis , dipst ick Nitrite neg Not Available [place] [address], [place], [address], 03/22/2020 12:39:34 03/22/20 20 03/22/2020 urina lysis , dipst ick Blood ++ Not Available [place] [address], [place], [address], 03/22/2020 12:39:34 03/22/20 20 03/22/2020 urina lysis , dipst ick Leukocytes trace Not Available Fiorella lopes [address], [place], [address], 03/22/2020 12:37:36 06/0903/22/2020 urina lysis , dipst ick Nitrite neg Not Available [place] [address], [place], [address], 03/22/2020 12:37:36 03/22/20 20 03/22/2020 urina lysis , dipst ick Blood ++ Not Available [place] [address], [place], [address], 03/22/2020 12:37:36 06/03/20 20 06/03/2020 MAMMO , scree kari, bilat eral No observ ation record ed. [facility] [address], [place], [address], 06/07/2020 18:06:12 06/13/20 20 DEXA, axial skele ton + verte bral fract ure asses sment No observ ation record ed. [facility] [address], [place], [address], 06/22/2020 16:28:43 Result Notes None recorded. Problems Name Problem SNOMED Code Status Onset Date Resolution Date Notes Provider Name and Address Organization Details Recorded Time SNOMED CT Concept Active 2015 Encntr for general adult medical exam w/o abnormal findings;R ecorded Elsewhere: No Locatio n: [facility] rce: EHR Chroni c: N Practice ID: 0001 Billa ble Time: 10:00:00 AM Not Available [facility] 0 21:21:31 Microscop ic hematuria [id number] Active 2015 Other microscopi c hematuria; Recorded Elsewhere: No Locatio n: [facility] rce: EHR Chroni c: N Practice ID: 0001 Billa ble Time: 10:00:00 AM Not Available [facility] 0 21:21:[address] Concept Active 2018 Well woman check w/o abnormal finding;Re corded Elsewhere: No Locatio n: [facility] rce: EHR Chroni c: N Practice ID: 0001 Billa ble Time: 11:00:00 AM Not Available [facility] 0 21:21:32 Specializ ed medical examinati on Active 2013 Gynecologi viktoria Examinatio n;Recorded Elsewhere: No Locatio n: [facility] rce: EHR Chroni c: N Practice ID: 0001 Billa ble Time: 02:30:00 PM Not Available [facility] 0 21:21:32 Screening for malignant neoplasm of rectum Active 2017 Encounter for screening for malignant neoplasm of rectum;Rec orded Elsewhere: No Locatio n: [facility] rce: EHR Chroni c: N Practice ID: 0001 Billa ble Time: 11:30:00 AM Not Available [facility] 0 21:21:32 Evaluatio n finding Active 2016 Hematuria, unspecifie d;Recorded Elsewhere: No Locatio n: [facility] rce: EHR Chroni c: N Practice ID: 0001 Billa ble Time: 11:30:00 AM Not Available [facility] 0 21:21:32 Adult health examinati on Active 2014 ROUTINE MEDICAL EXAM;Recor ded Elsewhere: No Locatio n: [facility] rce: EHR Chroni c: N Practice ID: 0001 Billa ble Time: 09:00:00 AM Not Available [facility] 0 21:21:32 Urinary tract infectiou s disease 53769108 Active 2015 UTI;Record ed Elsewhere: No Locatio n: [facility] rce: EHR Chroni c: N Practice ID: 0001 Billa ble Time: 10:00:00 AM Not Available [facility] 0 21:21:32 Screening for malignant neoplasm of cervix Active 2011 Screening for malignant neoplasms of the cervix;Rec orded Elsewhere: No Locatio n: [facility] rce: EHR Chroni c: N Practice ID: 0001 Billa ble Time: 03:30:00 PM Not Available [facility] 0 21:21:33 Radiologi c finding 423634663 Active 2018 Oth abn and inconclusi ve findings on dx imaging of breast;Rec orded Elsewhere: No Locatio n: [facility] Johana rce: EHR Chroni c: N Practice ID: 0001 Billa ble Time: 08:19:32 AM Not Available [facility] 0 21:21:[address] Concept Active 2016 Encounter for general adult medical exam w abnormal findings;P ractice ID: 0001 Not Available [facility] 0 21:21:36 Problem Notes None recorded. Procedures Surgical History Date Name Laterality Status Provider Name and Address Organization Details Recorded Time 10/14/19 06 Colonoscopy completed [facility] 03/22/2020 12:43:46 10/14/19 03 Total Hysterectomy completed [facility] 03/22/2020 12:54:27 10/14/18 99 LEEP completed [facility] 03/22/2020 12:42:53 10/14/18 62 hernia repair completed [facility] 03/22/2020 12:42:37 Cholecystectomy completed [facility] 03/22/2020 12:42:08 Imaging Results Imaging Date Name Status LastModified by Organiz ation Details LastModified Time 06/03/2020 MAMMO, screening, bilateral completed [facility] [address], [place], [address], 06/07/2020 18:06:12 06/13/2020 DEXA, axial skeleton + vertebral fracture assessment completed [facility] [address], [place], [address], 06/22/2020 16:28:43 Procedure Notes None recorded. Medical Equipment None Reported. Allergies Allergen ID Allergen Name Allergen Category Reaction Reaction Severity Criticality Documentation Date Start Date Code Code System Note Provider Name and Address Organization Details Recorded Time 925 codeine medicatio n Not available Not available Not available 03/22/2020 0350 RxNorm Selena Mcaley null, [facility] 0 12:24:47 926 nitrofura ntoin medicatio n Not available Not available Not available 03/22/2020 7454 RxNorm Selena amaral, [facility] 0 12:24:55 Medications Name Sig Start Date Stop Date Status Note LastModified by Organization Details LastModified Time atorvasta tin 40 mg tablet active Not Available Not Available Not Available atorvasta tin 20 mg tablet take 1 tablet by oral route every day 2018 active Prescrib ed Elsewher e: Yes Loca tion: [facility] odify By: aba pedrozaunttj DateTime : 02/05/20 [...] Prescrib ed Elsewher e: Yes Loca tion: [facility] odify By: kylah Issa nttj DateTime : 12/30/19 12 09:39:28 PM Not Available Not Available Not Available ibuprofen 200 mg capsule take 1 capsule by oral route every 6 hours as needed 01/01 completed Prescrib ed Elsewher e: Yes Loca tion: [facility] odify By: gail Wilks ncounttj DateTime : 12/30/19 12 09:39:28 PM Not Available Not Available Not Available Effexor XR 37.5 mg capsule,e xtended release take 1 capsule by oral route every day with food 01/01 completed Prescrib ed Elsewher e: Yes Loca tion: [facility] odify By: kylah Issa nter DateTime : 12/30/19 12 09:39:28 PM Not Available Not Available Not Available chlorthal idone 25 mg tablet active Not Available Not Available No t Available amlodipin e 5 mg tablet take 1 tablet by oral route every day active Prescrib ed Elsewher e: Yes Loca tion: [facility] odify By: dung pedrozaunttj DateTime : 02/04/20 18 11:30:00 AM Not Available Not Available Not Available Macrobid 100 mg capsule take 1 capsule by oral route every 12 hours with food 2018 active Prescrib ed Elsewher e: No Locat ion: [facility] odify By: kylah Tomou nter DateTime : 02/08/20 19 09:53:26 PM Not Available Not Available Not Available hydrochlo rothiazid e 12.5 mg capsule take 2 capsule by oral route every day active Prescrib ed Elsewher e: Yes Loca tion: [facility] odify By: kylah Issa nter DateTime : 12/30/19 12 09:39:28 PM Not Available Not Available Not Available Lipitor 10 mg tablet take 1 tablet by oral route every day active Prescrib ed Elsewher e: Yes Loca tion: [facility] odify By: kylah Tomou nter DateTime : 12/30/19 12 09:39:28 PM Not Available Not Available Not Available niacin ER 125 mg capsule,e xtended release take 1 capsule by oral route 3 times every day with meals active Prescrib ed Elsewher e: Yes Loca tion: [facility] odify By: geri javed DateTime : 01/26/20 [...] Elsewher e: No Locat ion: [facility] odify By: kylah Tomou nter DateTime : [...] Prescrib ed Elsewher e: Yes Loca tion: [facility] odify By: geri javed DateTime : 01/26/20 15 09:00:00 AM Not Available Not Available Not Available Vitals Date Recorded Body height Body mass index (BMI) Body weight Systolic blood pressure Diastolic blood pressure Provider Name and Address Organization Details Last Updated DateTime 03/22/2020 167.64 cm 27.4 kg/m2 49687.7 g 148 mm[Hg] 70 mm[Hg] [facility] 0 12:24:26 Social History None recorded. [...] ICD10 Code Diagnosis Note 7128 Raiza Piña [facility] [address] [address] 03/22/2020 12:17:05 03/22/2020 13:21:32 Postmenopausal state 76252355 Z78.0 Gynecologi c examination 41980905 Z01.419 Take Calcium with Vitamin D 12-1500mg daily. Do monthly self breast exams. It is advised to get annual flu shot in the fall and she could obtain at [facility] or [facility]. [...] and urine screened q6mos. Screening for osteoporosis 153632863 Z13.820 Blood in urine 35183060 R31.9 Health Concerns Section Related Observation LastModified by Organization Detai ls LastModified Time None Recorded Concern Status LastModified by Organization Details LastModified Time None Recorded Advance Directives Directive None Recorded Payers Encounter Date Sequence Insurance Name Policy Number Policy Li Covered Member ID Li Member ID Guarantor Name 03/22/2020 1 [place] Sugey Self [id number] 03/22/2020 2 [employer] [place] [id number] Notes Date Note Type Note Provider Name [...] to date on colonoscopy screening Raiza Piña, [facility]- [address], [place], [address], [facility] 03/22/2020 13:46:37 OBGyn Episode Ob Episode Information Episode Created Date Number of Fetuses Patient Bloodtype Patient rh Status Prepregnancy Weight lbs Domestic Partner Domestic Partner Phone Father Name Archeologist Status 03/22/20 20 1 CLOSED Fetus Data [...] Domestic Partner Domestic Partner Phone Father Name Archeologist Status 03/22/20 20 1 CLOSED Fetus Data [...]
--- OUTSIDE RECORDS SUMMARY | 2025-01-15 10:29 | XMS_ITS | Clinical Summary ---
Author Organization [facility] Address [address] [place] [address] Phone Care Team Providers Care Medical Lab Technologist Name Role Phone Joshua Bond MD Primary Care Provider [phone] Allergies Active Allergy Reactions Criticality Noted Date [...] 2017 Influenza Vaccine (#1) 2024 Care Teams Medical Lab Technologist Relationship Specialty Start Date End Date Joshua Bond MD [address] [place] [address] PCP - General Internal Medicine 04/11/22
--- OUTSIDE RECORDS SUMMARY | 2025-01-15 10:29 | XMS_ITS | Data Portability ---
Author Organization [place] - [facility], Main Office Address [address] [place] [address] Care Team Providers Care Vertical Lathe Operator Name Role Phone MARVEL THAO Primary [...] continue with therapy in the meantime discussed. [email or web address] Not available 05/28/2023 14:41:08 Plan of Treatment Reminders Order Date Submit Date Provider Last Modified By Organization Details Last Modified Time Details Appointments None recorded. Lab None recorded. Referral None recorded. Procedures injection/a spiration joint/bursa (PROC) - in office procedure, administere d by provider 2022 023 [email or web address] In-Office Order, Internal Use Only DO Not Attach Compendium DO Not Attach Compendium, Do Not Delete/merge, [id number] 3 14:38:48 injection/a spiration joint/bursa (PROC) - in office procedure, administere d by provider 2022 023 [email or web address] In-Office Order, Internal Use Only DO Not Attach Compendium DO Not Attach Compendium, Do Not Delete/merge, [id number] 3 10:20:08 injection/a spiration joint/bursa (PROC) - in office procedure, administere d by provider 2022 023 In-Office Order, Internal Use Only DO Not Attach Compendium DO Not Attach Compendium, Do Not Delete/merge, [id number] 3 10:45:35 injection/a spiration joint/bursa (PROC) - in office procedure, administere d by provider 2022 023 [email or web address] 3 In-Office Order, Internal Use Only DO Not Attach Compendium DO Not Attach Compendium, Do Not Delete/merge, [id number] 3 10:30:44 Surgeries None recorded. Imaging None recorded. Medication Orders Kenalog 10 mg/mL suspension for injection 2022 023 [employer] [facility][id number], [address], [place], [id number], 3 14:43:39 ropivacaine (PF) 5 mg/mL (0.5 %) injection solution 2022 023 [employer] [address] [facility] #94208, [address], [place], [id number], 3 14:43:39 Kenalog 10 mg/mL suspension for injection 2022 023 [employer] [facility] #05317, [address], [place], [id number], 3 10:44:05 ropivacaine (PF) 5 mg/mL (0.5 %) injection solution 2022 023 [employer] [facility], [address], [place], [id number], 3 10:44:05 prednisone 10 mg tablets in a dose pack 2022 023 [address]80, [address], [place], [id number], 3 10:44:05 Kenalog 10 mg/mL suspension for injection 2022 023 [employer] [facility] #40365, [address], [place], [id number], 3 10:49:11 ropivacaine (PF) 5 mg/mL (0.5 %) injection solution [address] [facility]02776, [address], [place], [id number], 3 10:49:11 prednisone 10 mg tablets in a dose pack [address] [facility]71901, [address], [place], [id number], 3 11:24:03 Kenalog 10 mg/mL suspension for injection 2022 023 [facility] [address] [facility] #82545, [address], [place], [id number], 3 10:33:56 ropivacaine (PF) 5 mg/mL (0.5 [...] Details Recorded Time Bilateral hip joint pain 5002825444777 9100 Active 2022 Jessica amaral, [employer] 3 10:11:34 Trochanteri c bursitis of left hip 2427647825523 03 Active 2022 Ernesto Ritter MD [address] [facility], [facility] [address], [place], [address] , [employer] 3 10:32:42 Problem Notes None recorded. Procedures Surgical History Date Name Laterality Status Provider Name and Address Organization Details Recorded Time 05/28/20 23 Ortho - Cortisone Injection completed Ernesto Ritter MD [address], [address], [place], [address], [facility] [employer] [facility] 05/28/2023 14:40:28 04/29/20 23 Ortho - Cortisone Injection completed Ernesto Ritter MD [address], [address], [place], [address], [facility] [employer] [facility] 04/29/2023 10:45:06 04/01/20 23 Ortho - Cortisone Injection completed Ernesto Ritter MD [address], [place], [address], [facility] [employer] [facility] 04/01/2023 11:06:16 03/07/20 23 Ortho - Cortisone Injection completed Ernesto Ritter MD [address], [address], [place], [address], [facility] [employer] [facility] 03/07/2023 10:32:34 Cholecystectomy completed Jessica Jin [facility] [employer] [facility] 03/07/2023 10:24:24 Hysterectomy completed Jessica Jin [facility] [employer] [facility] 03/07/2023 10:24:31 Cataract Surgery completed Jessica Jin [facility] [employer] [facility] 03/07/2023 10:24:39 Imaging Results Imaging Date [...] Name and Address Organization Details Recorded Time 10381 codeine medicatio n Not available Not available Not available 03/07/2023 7150 RxNorm breat shaun issue s Jessica Annabel amaral, [facility] [employer] [facility] 10:20:40 Medications Name Sig Start Date [...] 20 mg by injection route. 2022 active [facility]: 0003- 0494- 20 Not Available Not Available [...] 20 mg by injection route. 2022 active [facility] 26444 -064- 01 Not Available Not Available Not Available Vitals Date Recorded Body height Body mass index (BMI) Body weight Provider Name and Address Organization Details Last Updated DateTime 03/07/2023 167.64 cm 25 kg/m2 53251.82 g Jessica Jin [place] 03/07/2023 10:19:56 Date Recorded Body height Body mass index (BMI) Body weight Provider Name and Address Organization Details Last Updated DateTime 04/01/2023 167.64 cm 24.2 kg/m2 15812.86 g Yani Joseph [facility] 04/01/2023 09:54:27 Date Recorded Body height Body mass index (BMI) Body weight Provider Name and Address Organization Details Last Updated DateTime 04/29/2023 167.64 cm 25.8 kg/m2 46541.78 g Cheli Nguyen [place] [facility] 04/29/2023 09:50:22 Date Recorded Body height Body mass index (BMI) Body weight Provider Name and Address Organization Details Last Updated DateTime 05/28/2023 167.64 cm 24.9 kg/m2 08100.22 g Yani Joseph [employer] [place] 05/28/2023 14:12:41 Social History Question Answer Notes LastModified by Organizat ion Details LastModified Time Tobacco Smoking Status Current Every Day Smoker Jessica amaral hint [facility] 03/07/2023 10:24:14 What Is Your Level Of Alcohol Consumption? Occasional [email or web address] Information not available 03/07/2023 What Was The Date Of Your Most Recent Tobacco Screening? 03/07/2023 [email or web address] Information not available 03/07/2023 How Much Tobacco Do You Smoke? 1 PPD Information not available 03/07/2023 Do You Or Have You Ever Used Any Other Forms Of Tobacco Or Nicotine? No [email or web address] Information not available 03/07/2023 Sex: Unknown Functional Status None recorded. Mental Status None recorded. Family History Relationship Description Onset Age of this Age Resolved Age Notes LastModified by Organization Details LastModified Time Unspecified Relation Family history of stroke [email or web address] Not available 03/07 10:23:16 Mother Family history of malignant neoplasm [email or web address] Not available 03/07 10:23:26 Mother Diabetes mellitus [email or web address] Not available 03/07 10:23:40 Sister Diabetes mellitus [email or web address] Not available 03/07 10:23:40 Medical History Condition Response ARTHRITIS Y HYPERTENSION Y Gynecological HistoryNo gynecological history recorded. Obstetrics History GPAL:G 0 P 0 0 0 0 Past Encounters Encounter ID Performer Location Encounter Start Date Encounter Closed Date Diagnosis/Indication Diagnosis SNOMED-CT Code Diagnosis ICD10 Code Diagnosis Note [id number] Ernesto Ritter MD [facility] [place] [address] [place] [address] 03/07/2023 09:59:52 03/07/2023 10:56:13 Bilateral hip joint pain 2770626514 5240493 M25.551 M25.552 Trochanter ic bursitis of left hip 6961658650 56937 M70.62 [id number] Ernesto Ritter MD [facility] [place] [address] [place] [address] 04/01/2023 09:48:20 04/01/2023 11:12:21 Bilateral hip joint pain 9850598350 9844209 M25.551 M25.552 Trochanter ic bursitis of left hip 5187467844 75384 M70.62 [id number] Ernesto Ritter MD [facility] [place] [address] [place] [address] 04/29/2023 09:42:24 04/29/2023 10:49:22 Bilateral hip joint pain 5210158433 2753933 M25.551 M25.552 Trochanter ic bursitis of left hip 2938092232 95387 M70.62 [id number] Ernesto Ritter MD [facility] [place] [address] [facility] [address] [place] [address] 05/28/2023 14:08:08 05/28/2023 15:42:25 Bilateral hip joint pain 5390184981 6319175 M25.551 M25.552 Trochanter ic bursitis of left hip 9962969820 36251 M70.62 Health Concerns Section Related Observation LastModified by Organization Detai ls LastModified Time None Recorded Concern Status LastModified by Organization Details LastModified Time None Recorded Advance Directives Directive None Recorded Payers Encounter Date Sequence Insurance Name Policy Number Policy Li Covered Member ID Li Member ID Guarantor Name 03/07/2023 1 [place] Sugey Self [id number] Sugey Self 03/07/2023 2 [employer] (MEDICARE SUPPLEMENT) Sugey Self [id number] Sugey Self 04/01/2023 1 [place] Self [id number] 2 Sugey Self 04/01/2023 2 [employer] [place] (MEDICARE SUPPLEMENT) Sugey Self [id number] Sugeycoleen Self 04/29/2023 1 [place] Self [id number] 2 Sugeycoleen Self 04/29/2023 2 [employer] [place] (MEDICARE SUPPLEMENT) Sugey Self [id number] Sugey Self 05/28/2023 1 [place]uge[place] Self [id number] 2 Sugey Self 05/28/2023 2 [employer] [place] (MEDICARE SUPPLEMENT) Sugey Self [id number] Sugey Self Notes Date Note Type Note [...] lling Ernesto Ritter MD [address] [address], [place], [address], [employer] [facility] 03/07/2023 10:33:52 04/01/2023 text/html Patient returns hip pain left. She is tender over the trochanteric region. She got an injection of pills last time this seemed to take care much the pain. Unfortunately it has recurred it is tender she is tender again laterally more so than in the groin or buttock. Ernesto Ritter MD [address] [address], [place], [address], [employer] 04/01/2023 11:38:23 04/29/2023 text/html Patient returns hip pain left. She has trochanteric bursitis and tenderness laterally. She got relief from the injection in the and the anti-inflammatory medication adjusted last. Ernesto Ritter MD [address] [address], [place], [address], [employer] 04/29/2023 10:46:56 05/28/2023 text/html Patient returns hip pain left. She has trochanteric bursitis and tenderness laterally. She got relief from the injection in the and the anti-inflammatory medication adjusted last. Ernesto Ritter MD [address] [address], [place], [address], [facility] [employer] [facility] 05/28/2023 14:41:52 OBGyn Episode No OBEpisode recorded.
== END 2025-01-14 10:04 | disposition home or self-care (01) ==
PROVIDERS: PCP Emergency Medicine; Visit Provider Plastic Surgery
DX: M67.432 Ganglion, left wrist (principal)
CPT/HCPCS: 88304

== ENCOUNTER 2025-08-23 16:17 | Emergency (ER) | payer MEDICARE, OTHER, SELFPAY ==
[2025-08-23] VITALS (7 sets, daily range): BP systolic 158–172; BP diastolic 62–68; PULSE 81–92; RESP 14–18; TEMP 36.5–36.7; O2SAT 94–99
--- OUTSIDE RECORDS SUMMARY | 2025-08-23 16:19 | XMS_ITS | Data Portability ---
Author Organization [facility] [place] Address [address] [place] [place] [address] [place] [address] Assessment Encounter Date Assessment Date Assessment LastModified [...] urinalysis , dipstick 2019 020 cfriederic h1 [address], [address], [place], [address], 0 12:49:42 Referral None recorded. Procedures None recorded. Surgeries None recorded. Imaging DEXA, axial skeleton + vertebral fracture assessment 2019 020 [facility], [facility], [place], [address], 0 15:02:18 Medication Orders Effexor XR 75 mg capsule,ex tended release 2019 020 INTERFACE [facility], [address] [facility], [place], [address], 0 13:46:44 Patient TargetsNo targets recorded. Patient InstructionsNo instructions recorded. Reason for Referral None Reported. Results Created Date Observation Date Name Description Value Unit Range Abnormal Flag Note LastModifiedBy Organization Detail LastModifiedTime 03/22/20 20 03/23/2020 cultu re, urine specimen source Urine - Void Not Available [facility] ([facility]) [address], [place], [address], 03/25/2020 12:10:23 03/22/20 20 03/23/2020 cultu re, urine culture, urine See Below See Micro biolo gy Repor t Not Available [facility] ([facility]) [address], [place], [address], 03/25/2020 12:10:23 03/22/20 20 03/23/2020 cultu re, urine escherichia coli esbl 15,000 -25,00 0 CFU/ml Escher ichia coli ESBL This isola te is a confi rmed ESBL (Exte nded Spect rum Beta- Lacta imelda) produ cer and shoul d be consi dered clini maude resis tant to all penic illin s, cepha lospo rins and aztre onam. Not Available [facility] [address], [place], [address], 03/25/2020 12:10:23 03/22/20 20 03/23/2020 cultu re, [...] R=RES ISTAN T Not Available [facility]) [address], [place], [address], 03/25/2020 12:10:23 03/22/20 20 03/22/2020 urina lysis , dipst ick Leukocytes trace Not Available [facility] [address], [place], [address], 03/22/2020 12:39:34 03/22/20 20 03/22/2020 urina lysis , dipst ick Nitrite neg Not Available [facility] [address], [place], [address], 03/22/2020 12:39:34 03/22/20 20 03/22/2020 urina lysis , dipst ick Blood ++ Not Available [facility] [address], [place], [address], 03/22/2020 12:39:34 03/22/20 20 03/22/2020 urina lysis , dipst ick Leukocytes trace Not Available Fiorella lopes [address], [place], [address], 03/22/2020 12:37:36 03/22/20 20 03/22/2020 urina lysis , dipst ick Nitrite neg Not Available [facility] [address], [place], [address], 03/22/2020 12:37:36 03/22/20 20 03/22/2020 urina lysis , dipst ick Blood ++ Not Available [facility] [address], [place], [address], 03/22/2020 12:37:36 06/03/20 20 06/03/2020 MAMMO , scree kari, bilat eral No observ ation record ed. [facility] [address], [place], [address], 06/07/2020 18:06:12 06/13/20 20 DEXA, axial skele ton + verte bral fract ure asses sment No observ ation record ed. [facility] [address], [place], [address], 06/22/2020 16:28:43 Result Notes None recorded. Problems Name Problem SNOMED Code Status Onset Date Resolution Date Notes Provider Name and Address Organization Details Recorded Time Screening for malignant neoplasm of cervix Active 2011 Screening for malignant neoplasms of the cervix;Rec orded Elsewhere: No Locatio n: [facility] rce: EHR Chroni c: N Practice ID: 0001 Billa ble Time: 03:30:00 PM Not Available [facility] 0 21:21:33 Specializ ed medical examinati on Active 2013 Gynecologi viktoria Examinatio n;Recorded Elsewhere: No Locatio n: [facility] rce: EHR Chroni c: N Practice ID: 0001 Billa ble Time: 02:30:00 PM Not Available [facility] 0 21:21:32 Adult health examinati on Active 2014 ROUTINE MEDICAL EXAM;Recor ded Elsewhere: No Locatio n: [facility] rce: EHR Chroni c: N Practice ID: 0001 Billa ble Time: 09:00:00 AM Not Available [facility] 0 21:21:[address] Concept Active 2015 Encntr for general adult medical exam w/o abnormal findings;R ecorded Elsewhere: No Locatio n: [facility] rce: EHR Chroni c: N Practice ID: 0001 Billa ble Time: 10:00:00 AM [facility] 0 21:21:31 Microscop ic hematuria [id number] Active 2015 Other microscopi c hematuria; Recorded Elsewhere: No Locatio n: [facility] rce: EHR Chroni c: N Practice ID: 0001 Billa ble Time: 10:00:00 AM [facility] 0 21:21:32 Urinary tract infectiou s disease 94919144 Active 2015 UTI;Record ed Elsewhere: No Locatio n: [facility] rce: EHR Chroni c: N Practice ID: 0001 Billa ble Time: 10:00:00 AM Not [facility] 0 21:21:32 Evaluatio n finding Active 2016 Hematuria, unspecifie d;Recorded Elsewhere: No Locatio n: [facility] rce: EHR Chroni c: N Practice ID: 0001 Billa ble Time: 11:30:00 AM Not [facility] 0 21:[facility]:[address] Concept Active 2016 Encounter for general adult medical exam w abnormal findings;P ractice ID: 0001 [facility] Available [facility] 0 21:21:36 Screening for malignant neoplasm of rectum Active 2017 Encounter for screening for malignant neoplasm of rectum;Rec orded Elsewhere: No Locatio n: [facility] rce: EHR Chroni c: N Practice ID: 0001 Billa ble Time: 11:30:00 AM Not [facility] 0 21:[facility]:[address] Concept Active 2018 Well woman check w/o abnormal finding;Re corded Elsewhere: No Locatio n: [facility] rce: EHR Chroni c: N Practice ID: 0001 Billa ble Time: 11:00:00 AM Not Available [facility] 0 21:21:32 Evaluatio n finding Active 2018 Oth abn and inconclusi ve findings on dx imaging of breast;Rec orded Elsewhere: No Locatio n: [facility] rce: EHR Chroni c: N Practice ID: 0001 Billa ble Time: 08:19:32 AM Not Available [facility] 0 21:21:33 Problem Notes None recorded. Procedures Surgical History Date Name Laterality Status Provider Name and Address Organization Details Recorded Time 10/14/19 06 Colonoscopy completed [facility] 03/22/2020 12:43:46 10/14/19 03 Total Hysterectomy completed [facility] 03/22/2020 12:54:27 10/14/18 99 LEEP completed [facility] 03/22/2020 12:42:53 10/14/18 62 hernia repair completed [facility] 03/22/2020 12:42:37 Cholecystectomy completed [facility] 03/22/2020 12:42:08 Imaging Results None recorded. Procedure Notes None recorded. Medical Equipment None Reported. Allergies Allergen ID Allergen Name Allergen Category Reaction Reaction Severity Criticality Documentation Date Start Date Code Code System Note Provider Name and Address Organization Details Recorded Time 925 codeine medicatio n Not available Not available Not available 03/22/2020 2670 RxNorm Selena Garciasharad [facility] 0 12:24:47 926 nitrofura ntoin medicatio n Not available Not available Not available 03/22/2020 7454 RxNorm Selena Radhasharad [facility] 0 12:24:55 Medications Name Sig Start Date Stop Date Status Note LastModified by Organization Details LastModified Time atorvasta tin 40 mg tablet active Not Available Not Available Not Available atorvasta tin 20 mg tablet take 1 tablet by oral route every day 2018 active Prescrib ed Elsewher e: Yes Loca tion: Kimberly bonds [facility] odify By: aba sevilla DateTime : 02/05/20 19 11:00:00 AM Not [...] ed Elsewher e: Yes Loca tion: Kimberly bonds [facility] By: kylah Issa nttj DateTime : 12/30/19 12 09:39:28 PM Not Available Not Available Not Available ibuprofen 200 mg capsule take 1 capsule by oral route every 6 hours as needed 01/01 completed Prescrib ed Elsewher e: Yes Loca tion: Kimberly bonds [facility]ify By: gail [email or web address] DateTime : 12/30/19 12 09:39:28 PM Not Available Not Available Not Available Effexor XR 37.5 mg capsule,e xtended release take 1 capsule by oral route every day with food 01/01 completed Prescrib ed Elsewher e: Yes Loca tion: Kimberly bonds [facility]ify By: kyalh Issa nttj DateTime : 12/30/19 12 09:39:28 PM Not Available Not Available Not Available chlorthal idone 25 mg tablet active Not Available Not Available No t Available amlodipin e 5 mg tablet take 1 tablet by oral route every day active Prescrib ed Elsewher e: Yes Loca tion: Kimberly bonds [facility]ify By: dung sevilla DateTime : 02/04/20 18 11:30:00 AM Not Available Not Available Not Available Macrobid 100 mg capsule take 1 capsule by oral route every 12 hours with food 2018 active Prescrib ed Elsewher e: No Locat ion: Kimberly bonds [facility] odify By: kylah Issa nttj DateTime : 02/08/20 19 09:53:26 PM Not Available Not Available Not Available hydrochlo rothiazid e 12.5 mg capsule take 2 capsule by oral route every day active Prescrib ed Elsewher e: Yes Loca tion: Kimberly bonds [facility]ify By: kylah medina Encou nter DateTime : 12/30/19 12 09:39:28 PM Not Available Not Available Not Available Lipitor 10 mg tablet take 1 tablet by oral route every day active Prescrib ed Elsewher e: Yes Loca tion: Kimberly bonds [facility] odify By: kylah medina Encou nter DateTime : 12/30/19 12 09:39:28 PM Not Available Not Available Not Available niacin ER 125 mg capsule,e xtended release take 1 capsule by oral route 3 times every day with meals active Prescrib ed Elsewher e: Yes Loca tion: Kimberly bonds [facility] odify By: geri javed DateTime : 01/26/20 [...] ed Elsewher e: No Locat ion: Kimberly bonds [facility] odify By: kylah medina Encou nter DateTime : 01/20/20 14 02:30:00 PM [...] ed Elsewher e: Yes Loca tion: Kimberly bonds [facility] odify By: geri javed DateTime : 01/26/20 15 09:00:00 AM Not Available Not Available Not Available Vitals Date Recorded Body height Body mass index (BMI) Body weight Systolic And Diastolic Provider Name and Address Organization Details Last Updated DateTime 03/22/2020 167.64 cm 27.4 kg/m2 75391.7 g 148/70 mm[Hg] Selena Garciasharad [facility] 03/22/2020 12:24:26 Social History None recorded. Functional Status [...] Diagnosis SNOMED-CT Code Diagnosis ICD10 Code Diagnosis IMO Codes Diagnosis Note 7128 Raiza Piña [facility] [address] [address] 03/22/2020 12:17:05 03/22/2020 13:21:32 Postmenopausal state 00345880 Z78.0 Gynecologi c examination 99053749 Z01.419 Take Calcium with Vitamin D 12-1500mg daily. Do monthly self breast exams. It is advised to get annual flu shot in the fall and she could obtain at [facility] or [facility] care clinic. If you haven't received the Tdap vaccine [...] and urine screened q6mos. Screening for osteoporosis [id number] Z13.820 Blood in urine 65597904 R31.9 Health Concerns Section Related Observation LastModified by Organization Detai ls LastModified Time None Recorded Concern Status LastModified by Organization Details LastModified Time None Recorded Advance Directives Directive None Recorded Payers Insurance Date Sequence Insurance Name Policy Number Policy Li Covered Member ID Li Member ID Guarantor Name 01/22/2021 1 [place]ICARE-[place] (MEDICARE) Sugey K Clair [id number] 2 03/22/2020 2 [facility] Sugey Self [id number] Notes Date Note Type Note Provider Name and Address Organization Details Recorded Time 0 text/html Annual GYNReported by PatientHistoryFor history, patient reportsno gynecologic complaints.Genitourina ry symptomsFor menstrual cycle, patient reportsnormal menses. For urinary symptoms, patient reportsno hematuriaandno incontinence. For vulva, patient reportsno genital lesion. For vagina, patient reportsnormal vaginal discharge.Breast symptomsFor breast, patient reportsno breast pain,no breast lump, andno nipple discharge.Endocrine symptomsFor sexual complaints, patient reportsno sexual complaints,no pain during intercourse, andnormal libido. For menopausal symptoms, patient reportsno menopausal symptomsandnormal vaginal lubrication.Psychologi viktoria symptomsFor psychological symptoms, patient reportsno depression,no anxiety, andno pmdd.Preventative measuresFor preventive measures, patient reportsencourage self breast examination,encourage regular exercise,encourage no tobacco use,encourage regular mammograms starting age 40,needs to schedule mammogram, andup to date on colonoscopy screening. Raiza Piña, [facility]- [address], [place], [address], [facility] 03/22/2020 13:46:37 OBGyn Episode Ob Episode Information Episode Created Date Number of Fetuses Patient Bloodtype Patient rh Status Prepregnancy Weight lbs Domestic Partner Domestic Partner Phone Father Name Barrel Tester And Drainer Status 03/22/20 1 CLOSED Fetus Data First Name Last [...] Domestic Partner Domestic Partner Phone Father Name Barrel Tester And Drainer Status 03/22/20 20 1 CLOSED Fetus Data First Name Last Name Admitted to NICU Weight (g) Sex Living Outcome Pediatric Complications Fetus ID Race Codes Race Delivery Type Full Term 210 Vaginal Delivery Gabriel Calculation Initial Gabriel Date [...]
--- OUTSIDE RECORDS SUMMARY | 2025-08-23 16:19 | XMS_ITS | Clinical Summary ---
Author Organization [facility] Address [address] [place] [address] Phone Care Team Providers Care Hay Sorter Name Role Phone Joshua Bond MD Primary Care Provider [phone] Allergies Active Allergy Reactions Criticality Noted Date Comments Codeine 05/11/2022 Nitrofurantoin 05/11/2022 Medications albuterol HFA (PROVENTIL HFA) 108 (90 Base) MCG/ACT inhaler INHALE 1 PUFF BY MOUTH EVERY 4 HOURS NEEDED FOR SHORTNESS OF BREATH OR WHEEZING. 2 Active amLODIPine (NORVASC) 5 MG tablet Take 5 mg by mouth 1 (one) time each day in the evening 2 Active atorvastatin (LIPITOR) 40 MG tablet Take 40 mg by mouth 1 (one) time each day in the evening 2 Active chlorthalidone (HYGROTON) 25 MG tablet Take 25 mg by mouth 1 (one) time each day in the morning 2 Active fenofibrate (TRICOR) 48 MG tablet Take 48 mg by mouth 1 (one) time each day 2 Active metoprolol tartrate (LOPRESSOR) 100 MG tablet Take 100 mg by mouth 1 (one) time each day in the morning 2 Active venlafaxine XR (EFFEXOR-XR) 75 MG 24 hr capsule Take 75 mg by mouth 1 (one) time each day in the morning 2 Active Multiple Vitamins-Minera ls (CENTRUM SILVER 50+WOMEN PO) Centrum Silver Activ e Active Problems Problem Noted Date Diagnosed Date [...] = 0.6 oz pur e alcohol) rare Comments Unknown Sex and Gender Information Value Date Recorded Sex Assigned at Not on file Legal Sex Female 10:56 AM MDT Gender Identity Not on file Sexual Orientation [...] 11:31 AM CDT Height 170.2 cm (5' 7) 05/14/2022 11:31 AM CDT Body Mass Index 26 05/14/2022 11:31 AM CDT Plan of Treatment Health Maintenance Due Date Last Done Comments Pneumococcal PPSV23/PCV13 65 + Years / Low and Medium Risk (1 of 2 - PCV) 2002 Influenza Vaccine (#1) 2025 Insurance [facility] MEDICARE [place] [id number] Care Teams Hay Sorter Relationship Specialty Start Date End Date Joshua Bond MD [address] [place] [address] PCP - General Internal Medicine 04/11/22
[2025-08-23 17:14] LABS: Immature Granulocyte Percent A 0.7 % (0-0.5); Lymphocytes Absolute Auto 2.18 K/mm3 (0.9-3.2); Mean Corpuscular HGB Conc 31.0 g/dl (32-36); Mean Corpuscular Hemoglobin 25.2 pg (26-34); Mean Corpuscular Volume 81.3 fl (80-100); Nucleated Red Blood Cells Absolute Auto 0.000 K/mm3 (0.0-0.012); Nucleated Red Blood Cells Perc 0.0 % (0.0-0.2); Platelet Count Result 430 k/mm3 (150-375); Red Blood Count 2.14 M/mm3 (4.2-5.4); White Blood Count 8.6 K/mm3 (4.5-10.0)
[2025-08-23 17:16] LABS: Hemoglobin 5.4 g/dL (12.0-15.0)
[2025-08-23 17:17] LABS: Hematocrit 17.4 % (37.0-47.0)
[2025-08-23 18:49] LABS: Alanine Aminotransferase 23 U/L (6-35); Albumin Level 3.9 g/dL (3.5-5.1); Alkaline Phosphatase 123 U/L (38-126); Anion Gap 13 mmol/L (4-12); Aspartate Amino Transferase 47 U/L (14-36); Bilirubin,Total 0.3 mg/dL (0.2-1.3); Blood Urea Nitrogen 52 mg/dL (7-17); Calcium 9.0 mg/dL (8.4-10.2); Carbon Dioxide 25 mmol/L (22-30); Chloride 87 mmol/L (98-107); Estimated Glomerular Filt Rate 12; Glucose 118 mg/dL (65-110); Potassium 3.2 mmol/L (3.4-5.0); Sodium 125 mmol/L (137-145); Total Protein 6.8 g/dL (6.3-8.2)
--- NOTE | 2025-08-23 18:53 | ED.RECABL ---
HPI - Recheck/Abnormal Lab/Rx General Chief Complaint: Recheck/Abnormal Lab/Rx Stated Complaint: I need an emergency blood transfusion Time Seen by Provider: 08/23/25 18:38 Source: patient Mode of arrival: ambulatory Limitations: no limitations History of Present Illness HPI narrative: This is a 75 year old female that presents to the ER for abnormal outpatient blood work. Reports she has a low hemoglobin and was told she needs to come in for a blood transfusion. No symptoms reported. Related Data Home Medications ?Medication ?Instructions ?Recorded ?Confirmed ?Last Taken ?Type aspirin 81 mg tablet,delayed 81 mg PO DAILY 02/28/21 07/22/25 01/14/25 History release labetalol 200 mg tablet 100 mg PO BID 03/01/25 07/22/25 Unknown History Allergies Allergy/AdvReac Type Severity Reaction Status Date / Time codeine Allergy Intermediate HEAVY Verified 07/21/25 15:16 FEELING ON CHEST hydrocodone Allergy Intermediate Rash Verified 07/21/25 15:16 Review of Systems Review of Systems: All systems reviewed & are unremarkable except as noted in HPI and below PMFSH Past Medical History Medical History Sinusitis Sinusitis, chronic Ear pressure Cholecystectomy planned (~2000) History of sinus problem Ear discharge Blurred vision Lack of bladder control Blood in urine Vaginal infection History of one miscarriage Chicken pox Bronchitis Surgical History Surgical History H/O: hysterectomy (~2002) Family History Family History Father , 49 Hepatic sclerosis Mother , 77 Diabetes mellitus Renal failure Social History Social History Social History: Patient drinks 2 pots of coffee per day. Smoking packs per day: 0.5 Smoking cigarettes per day: 10.0 Tobacco type: cigarettes Alcohol intake: current Alcohol use details: Patient drinks alcohol rarely Substance use: current Substance use type: marijuana Do You Feel Safe in your Home?: Yes Lack of Transportation: No Lack of Food: Never True Current Housing: I Have Housing Concerned About Future Housing: No Difficulty Paying Gas/Electric Bills: No Difficulty Paying for Meds: No Currently Unemployed: No Education: High School Diploma/GED Difficulty w/ Childcare or Family Care: No Living arrangements: with family Occupation/Education: retired Gender identity (if verbalized by the patient): Female Sexual Orientation (if Verbalized by the Patient): Straight or Heterosexual Spiritual care concerns: No Exam Narrative: GENERAL: Chronically ill-appearing, well-nourished, and in no acute distress. HEAD: Normocephalic, atraumatic. EYES: EOMI. ENT: Nares clear, no rhinorrhea or epistaxis. Mucous membranes moist. Oropharynx without tonsillar hypertrophy exudate or other lesions. NECK: Supple. CHEST: Clear to auscultation. No respiratory distress. No wheezes rales or rhonchi HEART: Regular rate and rhythm. No murmur heard. Normal peripheral pulses. ABDOMEN: Soft, nontender, nondistended, normal active bowel sounds. EXTREMITIES: Normal range of motion. No edema. SKIN: Warm, dry, no rash. NEURO: No focal deficits. Alert and oriented x3. PSYCH: Normal mood and affect RECTAL: Hemoccult negative Course Course Emergency Course: Patient updated on her workup and recommendation for admission. She does not wish to stay in the hospital at this time Vital Signs Vital signs: Vital Signs Temperature 97.8 F 08/23/25 16:40 Pulse Rate 89 08/23/25 16:40 Respiratory Rate 16 08/23/25 16:40 Blood Pressure 172/68 H 08/23/25 16:40 Pulse Oximetry 96 08/23/25 16:40 Oxygen Delivery Room Air 08/23/25 16:40 Temperature 97.9 F 08/23/25 22:22 Pulse Rate 84 08/23/25 22:22 Respiratory Rate 18 08/23/25 22:22 Blood Pressure 160/62 H 08/23/25 22:22 Pulse Oximetry 97 08/23/25 22:22 Oxygen Delivery Room Air 08/23/25 16:40 MDM - Recheck/Abnormal Lab/Rx MDM Narrative Medical decision making narrative: Patient presents to the emergency department for low hemoglobin. No reported bleeding. Hemoccult negative. Her vitals are stable. Hemoglobin is 5.4. Patient with known chronic kidney disease. Transfuse 2 units packed RBCs. She was updated on her workup and recommendation for admission. She does not wish to stay in the hospital at this time. I did send an order electronically for her to have her H&H repeated as she will not stay for this either. Instructed to return any time for further evaluation/management Lab Data Attestation: I reviewed the patient's lab results. 08/23/25 17:03 08/23/25 17:02 Labs: Lab Results 08/23/25 08/23/25 Range/Units 17:02 17:03 WBC 8.6 (4.5-10.0) K/mm3 RBC 2.14 L (4.2-5.4) M/mm3 Hgb 5.4 L* (12.0-15.0) g/dL Hct 17.4 L* (37.0-47.0) % MCV 81.3 (80-100) fl MCH 25.2 L (26-34) pg MCHC 31.0 L (32-36) g/dl RDW 16.2 H (11.5-14.5) % Plt Count 430 H (150-375) k/mm3 MPV 7.6 (7.4-10.4) fl Immature Gran % (Auto) 0.7 H (0-0.5) % Neut % (Auto) 63.1 (45.5-73.1) % Lymph % (Auto) 25.4 (18.3-44.2) % Juncos % (Auto) 8.9 H (2.6-8.5) % Eos % (Auto) 1.6 (0-4.4) % Baso % (Auto) 0.3 (0.2-1.2) % Lymph # (Auto) 2.18 (0.9-3.2) K/mm3 Juncos # (Auto) 0.8 H (0.1-0.6) K/mm3 Eos # (Auto) 0.1 (0-0.3) K/mm3 Baso # (Auto) 0.0 (0.0-0.1) K/mm3 Abs Immat Gran (auto) 0.06 H (0.00-0.031) K/mm3 Absolute Neuts (auto) 5.4 (1.3-6.7) K/mm3 Absolute Nucleated RBC 0.000 (0.0-0.012) K/mm3 Nucleated RBC % 0.0 (0.0-0.2) % PT 11.9 (11.1-14.7) Seconds INR 0.9 APTT 31.2 (22.3-36.8) Seconds Sodium 125 L (137-145) mmol/L Potassium 3.2 L (3.4-5.0) mmol/L Chloride 87 L (98-107) mmol/L Carbon Dioxide 25 (22-30) mmol/L Anion Gap 13 H (4-12) mmol/L BUN 52 H (7-17) mg/dL Creatinine 3.58 H (0.7-1.0) mg/dL Estim Creat Clear Calc Not Reportable Estimated GFR 12 L (59 - ) Glucose 118 H (65-110) mg/dL Calcium 9.0 (8.4-10.2) mg/dL Magnesium 2.9 H (1.6-2.3) mg/dL Total Bilirubin 0.3 (0.2-1.3) mg/dL AST 47 H (14-36) U/L ALT 23 (6-35) U/L Alkaline Phosphatase 123 (38-126) U/L Total Protein 6.8 (6.3-8.2) g/dL Albumin 3.9 (3.5-5.1) g/dL Blood Type B Negative Antibody Screen Negative Crossmatch See Detail Critical Care Time Critical Care Time Critical Care Time: Yes Total Critical Care Time: 35 Discharge Plan Discharge Clinical Impression: Anemia Qualifiers: Anemia type: unspecified type Qualified Code(s): D64.9 - Anemia, unspecified Patient Disposition: Home Condition: Serious Instructions: Anemia (ED) Additional Instructions: Return to the emergency department if you experience fever, chest pain, shortness of breath, you pass out, weakness, numbness, or any other symptoms that are concerning to you. I have sent an order electronically for you to have your hemoglobin repeated outpatient Follow up with your primary care doctor and floor plan adjuster Patient Language: Maltese Prescriptions: No Action fluticasone propionate [Flonase Allergy Relief] 50 mcg/actuation spray,suspension 1 spray intranasal DAILY Qty: 16 0RF Rx Instructions: administer into each nostril amlodipine [Norvasc] 10 mg tablet 10 mg PO DAILY Qty: 90 2RF albuterol sulfate 90 mcg/actuation HFA aerosol inhaler See Rx Instructions .ROUTE .COMPLEX Qty: 8.5 3RF Dose Instruction: INHALE 1 PUFF BY MOUTH EVERY 4 HOURS NEEDED FOR SHORTNESS OF BREATH OR WHEEZING Rx Instructions: INHALE 1 PUFF BY MOUTH EVERY 4 HOURS NEEDED FOR SHORTNESS OF BREATH OR WHEEZING chlorthalidone 25 mg tablet 25 mg PO BID Qty: 60 5RF aspirin 81 mg tablet,delayed release (DR/EC) 81 mg PO DAILY labetalol 200 mg tablet 100 mg PO BID venlafaxine 75 mg capsule,extended release 24hr See Rx Instructions .ROUTE .COMPLEX Qty: 90 2RF Dose Instruction: TAKE 1 CAPSULE BY MOUTH EVERY MORNING Rx Instructions: TAKE 1 CAPSULE BY MOUTH EVERY MORNING rosuvastatin 40 mg tablet 40 mg PO DAILY Qty: 30 12RF tramadol 50 mg tablet 50 mg PO TID PRN (Reason: pain) Qty: 30 2RF Other Ambulatory Orders: Hemoglobin and Hematocrit (Routine) Timeframe: 1 Day Location: Determined by Patient Ordered By: Carol Guido Follow-up/Referrals: Joshua Bond MD [Primary Care Provider, Internal Medicine]
[2025-08-23 19:00] LABS: INR 0.9; Prothrombin Time 11.9 Seconds (11.1-14.7)
[2025-08-23 19:01] LABS: Partial Thromboplastin Time 31.2 Seconds (22.3-36.8)
[2025-08-23 19:18] LABS: Magnesium 2.9 mg/dL (1.6-2.3)
[2025-08-23] MEDS: SODIUM CHLORIDE 0.9% IV 250 ML 30 ML IV CONT (19:55)
[2025-08-23] MEDS: PANTOPRAZOLE SODIUM IV 40 MG VIAL 80 MG IV PUSH (19:56)
[2025-08-23] MEDS: TUBING, BLOOD SET 1 EACH XX ×2 (19:56→22:10)
[2025-08-23] MEDS: POTASSIUM CHLORIDE 20 MEQ ER TABLET 40 MEQ PO (19:56)
--- NOTE | 2025-08-23 23:25 | PC.NURSE ---
Pt is refusing to get labs redrawn despite education. Pt instructed to go and get labs redrawn as soon as possible.
[2025-08-24 00:32] VITALS: BP 164/85; PULSE 82; RESP 18; O2SAT 98
== END 2025-08-23 23:30 | disposition home or self-care (01) ==
PROVIDERS: Emergency Medicine; Emergency Provider Physician Assistant; PCP Emergency Medicine
DX: D64.9 Anemia, unspecified (principal); N18.9 Chronic kidney disease, unspecified; F17.210 Nicotine dependence, cigarettes, uncomplicated; Z90.710 Acquired absence of both cervix and uterus; Z79.82 Long term (current) use of aspirin; Z79.899 Other long term (current) drug therapy
CPT/HCPCS: 36415; 36430; 80053; 83735; 85025; 85610; 85730; 86850; 86900; 86901; 86923; 96361; 96374; 99285; A9270; J2470; J7050; P9016

== ENCOUNTER 2025-09-18 07:56 | Emergency (ER) | payer MEDICARE, OTHER, SELFPAY ==
--- NOTE | ~2025-09-18 | CT_ITS ---
EXAMINATION: CT lumbar spine wo con DATE: 09/18/2025 09:15 INDICATION: Back pain. TECHNIQUE: Computed tomography (CT) of the lumbar spine was performed without intravenous contrast. Automated exposure control and iterative reconstruction technique were employed. The dose-length product was 794.09 mGy-cm. COMPARISON: None FINDINGS: There is 13 degrees levoscoliosis of lumbar spine. Vertebral body heights are normal. There is severely decreased disc height at T12-L1, moderately decreased disc height at L1-L2 and L2-L3, severely decreased disc height at L3-L4 and L4-L5, and moderately decreased disc height at L5-S1. The d iscs are bulging from T12-L1 through L5-S1. There is multilevel severe facet joint osteoarthritis. There is mild neural foraminal stenosis at most levels. On the right, there is moderate neural foraminal stenosis at L3-L4 and L4-L5. On the left, there is moderate neural frontal stenosis at L3-L4 and L4-L5. There is mild central canal stenosis at the disc levels from T12-L1 through L5-S1. IMPRESSION: 1. No fracture. 2. Severe lumbar spondylosis. 3. Lumbar levoscoliosis. Reviewed, dictated and finalized at location E. [employer]RARIAN
--- NOTE | ~2025-09-18 | CT_ITS ---
EXAMINATION: CT pelvis wo con DATE: 09/18/2025 09:14 INDICATION: Bilateral hip pain. TECHNIQUE: Computed tomography (CT) of the pelvis was performed without intravenous contrast. Automated exposure control and iterative reconstruction technique were employed. The dose-length product was 312.61 mGy-cm. COMPARISON: CT abdomen and pelvis 03/18/2014 FINDINGS: There are no pathologically enlarged lymph nodes. There is no ascites. There is severe lumbar spondylosis. No fracture. There is moderate osteoarthritis of the hips. IMPRESSION: 1. Moderate osteoarthritis of the hips. Reviewed, dictated and finalized at location E. IT ADMINISTRATOR
[2025-09-18 07:57] VITALS: BP 168/87; PULSE 99; RESP 18; TEMP 36.6; O2SAT 97
--- OUTSIDE RECORDS SUMMARY | 2025-09-18 07:58 | XMS_ITS | Data Portability ---
Author Organization [facility] [place] Address [address] [place] [place] [address] Assessment Encounter Date Assessment Date Assessment LastModified [...] urinalysis , dipstick 2019 020 [facility] [place], [address], [place], [address], 0 12:49:42 Referral None recorded. Procedures None recorded. Surgeries None recorded. Imaging DEXA, axial skeleton + vertebral fracture assessment 2019 020 [facility], [place], [address], 0 15:02:18 Medication Orders Effexor XR 75 mg capsule,ex tended release 2019 020 INTERFACE [facility], [address] [facility], [place], [address], 0 13:46:44 Patient TargetsNo targets recorded. Patient InstructionsNo instructions recorded. Reason for Referral None Reported. Results Created Date Observation Date Name Description Value Unit Range Abnormal Flag Note LastModifiedBy Organization Detail LastModifiedTime 03/22/20 20 03/23/2020 cultu re, urine specimen source Urine - Void Not Available [facility]) [address], [place], [address], 03/25/2020 12:10:23 03/22/20 20 03/23/2020 cultu re, urine culture, urine See Below See Micro biolo gy Repor t Not Available [facility] ([facility]) [address], [place], [address], 03/25/2020 12:10:23 03/22/20 20 03/23/2020 cultu re, urine escherichia coli esbl 15,000 -25,00 0 CFU/ml Escher ichia coli ESBL This isola te is a confi rmed ESBL (Exte nded Spect rum Beta- Lacta imelda) produ cer and shoul d be consi dered clini maude resis tant to all penic illin s, cepha lospo rins and aztre onam. Not Available [facility] [address], [place], [address], 03/25/2020 12:10:23 03/22/20 20 03/23/2020 cultu re, [...] R=RES ISTAN T Not Available [facility]) [address] [facility], [place], [address], 03/25/2020 12:10:23 03/22/20 20 03/22/2020 urina lysis , dipst ick Leukocytes trace Not Available [facility] [address], [place], [address], 03/22/2020 12:39:34 03/22/20 20 03/22/2020 urina lysis , dipst ick Nitrite neg Not Available [place] [address], [place], [address], 03/22/2020 12:39:34 03/22/20 20 03/22/2020 urina lysis , dipst ick Blood ++ Not Available [place] [address], [place], [address], 03/22/2020 12:39:34 03/22/20 20 03/22/2020 urina lysis , dipst ick Leukocytes trace Not Available Fiorella lopes [address], [place], [address], 03/22/2020 12:37:36 03/22/20 20 03/22/2020 urina lysis , dipst ick Nitrite neg Not Available [place] [address], [place], [address], 03/22/2020 12:37:36 03/22/20 20 03/22/2020 urina lysis , dipst ick Blood ++ Not Available [place] [address], [place], [address], 03/22/2020 12:37:36 06/03/20 20 06/03/2020 MAMMO , scree kari, bilat eral No observ ation record ed. [facility] [address], [place], [address], 06/07/2020 18:06:12 06/13/20 20 DEXA, axial skele ton + verte bral fract ure asses sment No observ ation record ed. [facility] [address], [place], [address], 06/22/2020 16:28:43 Result Notes None recorded. Problems Name Problem SNOMED Code Status Onset Date Resolution Date Notes Provider Name and Address Organization Details Recorded Time Screening for malignant neoplasm of cervix Active 2011 Screening for malignant neoplasms of the cervix;Rec orded Elsewhere: No Locatio n: [facility]ce: EHR Chroni c: N Practice ID: 0001 Billa ble Time: 03:30:00 PM Not Available [facility] 0 21:21:33 Specializ ed medical examinati on Active 2013 Gynecologi viktoria Examinatio n;Recorded Elsewhere: No Locatio n: [facility] rce: EHR Chroni c: N Practice ID: 0001 Billa ble Time: 02:30:00 PM Not Available [facility] 0 21:21:32 Adult health examinati on Active 2014 ROUTINE MEDICAL EXAM;Recor ded Elsewhere: No Locatio n: [facility] rce: EHR Chroni c: N Practice ID: 0001 Billa ble Time: 09:00:00 AM Not Available [facility] 0 21:21:[address] Concept Active 2015 Encntr for general adult medical exam w/o abnormal findings;R ecorded Elsewhere: No Locatio n: [facility] rce: EHR Chroni c: N Practice ID: 0001 Billa ble Time: 10:00:00 AM Not Available [facility] 0 21:21:31 Microscop ic hematuria 111522766 Active 2015 Other microscopi c hematuria; Recorded Elsewhere: No Locatio n: [facility] rce: EHR Chroni c: N Practice ID: 0001 Billa ble Time: 10:00:00 AM Not Available [facility] 0 21:21:32 Urinary tract infectiou s disease 32751564 Active 2015 UTI;Record ed Elsewhere: No Locatio n: [facility] rce: EHR Chroni c: N Practice ID: 0001 Billa ble Time: 10:00:00 AM Not Available [facility] 0 21:21:32 Evaluatio n finding Active 2016 Hematuria, unspecifie d;Recorded Elsewhere: No Locatio n: [facility] rce: EHR Chroni c: N Practice ID: 0001 Billa ble Time: 11:30:00 AM Not Available [facility] 0 21:21:[address] Concept Active 2016 Encounter for general adult medical exam w abnormal findings;P ractice ID: 0001 Not Available [facility] 0 21:21:36 Screening for malignant neoplasm of rectum Active 2017 Encounter for screening for malignant neoplasm of rectum;Rec orded Elsewhere: No Locatio n: [facility] rce: EHR Chroni c: N Practice ID: 0001 Billa ble Time: 11:30:00 AM Not Available [facility] 0 21:21:[address] Concept Active 2018 Well woman check w/o abnormal finding;Re corded Elsewhere: No Locatio n: [facility] rce: EHR Chroni c: N Practice ID: 0001 Billa ble Time: 11:00:00 AM Not Available [facility] 0 21:21:32 Evaluatio n finding Active 2018 Oth abn and inconclusi ve findings on dx imaging of breast;Rec orded Elsewhere: No Locatio n: [facility] Johana rce: EHR Chroni c: N Practice ID: 0001 Billa ble Time: 08:19:32 AM Not Available [facility] 0 21:21:33 Problem Notes None recorded. Procedures Surgical History Date Name Laterality Status Provider Name and Address Organization Details Recorded Time 10/14/19 06 Colonoscopy completed [facility] 03/22/2020 12:43:46 10/14/19 03 Total Hysterectomy completed [facility] 03/22/2020 12:54:27 10/14/18 99 LEEP completed [facility] 03/22/2020 12:42:53 10/14/18 62 hernia repair completed [facility] 03/22/2020 12:42:37 Cholecystectomy completed [facility] 03/22/2020 12:42:08 Imaging Results None recorded. Procedure Notes None recorded. Medical Equipment None Reported. Allergies Allergen ID Allergen Name Allergen Category Reaction Reaction Severity Criticality Documentation Date Start Date Code Code System Note Provider Name and Address Organization Details Recorded Time 925 codeine medicatio n Not available Not available Not available 03/22/2020 2670 RxNorm Selena Garciasharad [facility] 0 12:24:47 926 nitrofura ntoin medicatio n Not available Not available Not available 03/22/2020 7454 RxNorm Selena Radhasharad [facility] 0 12:24:55 Medications Name Sig Start Date Stop Date Status Note LastModified by Organization Details LastModified Time atorvasta tin 40 mg tablet active Not Available Not Available Not Available atorvasta tin 20 mg tablet take 1 tablet by oral route every day 2018 active Prescrib ed Elsewher e: Yes Loca tion: [employer] odify By: aba sevilla DateTime : 02/05/20 [...] Elsewher e: Yes Loca tion: [employer] [facility] odify By: kylah Issa nttj DateTime : 12/30/19 12 09:39:28 PM Not Available Not Available Not Available ibuprofen 200 mg capsule take 1 capsule by oral route every 6 hours as needed 01/01 completed Prescrib ed Elsewher e: Yes Loca tion: [employer] [facility] odify By: gail [email or web address] DateTime : 12/30/19 12 09:39:28 PM Not Available Not Available Not Available Effexor XR 37.5 mg capsule,e xtended release take 1 capsule by oral route every day with food 01/01 completed Prescrib ed Elsewher e: Yes Loca tion: [employer] [facility] odify By: kylah Issa nttj DateTime : 12/30/19 12 09:39:28 PM Not Available Not Available Not Available chlorthal idone 25 mg tablet active Not Available Not Available No t Available amlodipin e 5 mg tablet take 1 tablet by oral route every day active Prescrib ed Elsewher e: Yes Loca tion: [employer] [facility] odify By: dung sevilla DateTime : 02/04/20 18 11:30:00 AM Not Available Not Available Not Available Macrobid 100 mg capsule take 1 capsule by oral route every 12 hours with food 2018 active Prescrib ed Elsewher e: No Locat ion: [employer] [facility] odify By: kylah Issa nttj DateTime : 02/08/20 19 09:53:26 PM Not Available Not Available Not Available hydrochlo rothiazid e 12.5 mg capsule take 2 capsule by oral route every day active Prescrib ed Elsewher e: Yes Loca tion: [employer] [facility] odify By: kylah medina Encou nter DateTime : 12/30/19 12 09:39:28 PM Not Available Not Available Not Available Lipitor 10 mg tablet take 1 tablet by oral route every day active Prescrib ed Elsewher e: Yes Loca tion: [employer] [facility] odify By: kylah medina Encou nter DateTime : 12/30/19 12 09:39:28 PM Not Available Not Available Not Available niacin ER 125 mg capsule,e xtended release take 1 capsule by oral route 3 times every day with meals active Prescrib ed Elsewher e: Yes Loca tion: [employer] [facility] odify By: geri javed DateTime [...] Elsewher e: No Locat ion: [employer] [facility] odify By: kylah medina Encou nter DateTime [...] Elsewher e: Yes Loca tion: [employer] [facility] odify By: geri javed DateTime : 01/26/20 15 09:00:00 AM Not Available Not Available Not Available Vitals Date Recorded Body height Body mass index (BMI) Body weight Systolic And Diastolic Provider Name and Address Organization Details Last Updated DateTime 03/22/2020 167.64 cm 27.4 kg/m2 03797.7 g 148/70 mm[Hg] Selena Garciasharad [facility] 03/22/2020 12:24:26 Social History None recorded. [...] IMO Codes Diagnosis Note [id number] Raiza Piña [facility] [address] [address] 03/22/2020 12:17:05 03/22/2020 13:21:32 Postmenopausal state 67660000 Z78.0 Gynecologi c examination 55116775 Z01.419 Take Calcium with Vitamin D 12-1500mg daily. Do monthly self breast exams. It is advised to get annual flu shot in the fall and she could obtain at [facility] or [facility] care clinic. If you haven't received the [...] and urine screened q6mos. Screening for osteoporosis 918747440 Z13.820 Blood in urine 99644648 R31.9 Health Concerns Section Related Observation LastModified by Organization Detai ls LastModified Time None Recorded Concern Status LastModified by Organization Details LastModified Time None Recorded Advance Directives Directive None Recorded Payers Insurance Date Sequence Insurance Name Policy Number Policy Li Covered Member ID Li Member ID Guarantor Name 01/22/2021 1 [place] Sugey K Clair [id number] 03/22/2020 2 [facility] Sugey Self [id number] Notes Date Note Type Note Provider Name [...] to date on colonoscopy screening. Raiza Piña, [facility]- [address], [place], [address], [facility] 03/22/2020 13:46:37 OBGyn Episode Ob Episode Information Episode Created Date Number of Fetuses Patient Bloodtype Patient rh Status Prepregnancy Weight lbs Domestic Partner Domestic Partner Phone Father Name Process Control Programmer Status 03/22/20 1 CLOSED Fetus Data First [...] Domestic Partner Domestic Partner Phone Father Name Process Control Programmer Status 03/22/20 20 1 CLOSED Fetus Data [...]
--- OUTSIDE RECORDS SUMMARY | 2025-09-18 07:58 | XMS_ITS | Clinical Summary ---
Author Organization [facility] Address [address] [place] [id number] Phone Care Team Providers Care Store Administrative Assistant Name Role Phone Joshua Bond MD Primary Care Provider [phone] Allergies Active Allergy Reactions Criticality Noted Date [...] PCV) 2002 Influenza Vaccine (#1) [address] [facility] MEDICARE ROBERT SHAH [id number] Care Teams Store Administrative Assistant Relationship Specialty Start Date End Date Joshua Bond MD [address] [place] [address] PCP - General Internal Medicine 04/11/22
--- OUTSIDE RECORDS SUMMARY | 2025-09-18 07:58 | XMS_ITS | Data Portability ---
Author Organization [place] - [facility] [employer], Main Office Address [address] [place] [address] Care Team Providers Care Cement Loader Name Role Phone MARVEL THAO Primary Care Provider MARVEL THAO Referring Provider [phone] Assessment Encounter Date Assessment Date Assessment LastModified [...] to go to therapy as well. Discussed. [email or web address] Not available 04/29/2023 10:46:33 05/28/2023 05/28/2023 Patient [...] continue with therapy in the meantime discussed. [email or web address] Not available 05/28/2023 14:41:08 Plan of Treatment Reminders Order Date Submit Date Provider Last Modified By Organization Details Last Modified Time Details Appointments None recorded. Lab None recorded. Referral None recorded. Procedures injection/a spiration joint/bursa (PROC) - in office procedure, administere d by provider 2022 023 [email or web address] In-Office Order, Internal Use Only DO Not Attach Compendium DO Not Attach Compendium, Do Not Delete/merge, [id number] 3 14:38:48 injection/a spiration joint/bursa (PROC) - in office procedure, administere d by provider 2022 023 [email or web address] In-Office Order, Internal Use Only DO Not Attach Compendium DO Not Attach Compendium, Do Not Delete/merge, [id number] 3 10:20:08 injection/a spiration joint/bursa (PROC) - in office procedure, administere d by provider 2022 023 In-Office Order, Internal Use Only DO Not Attach Compendium DO Not Attach Compendium, Do Not Delete/merge, [id number] 3 10:45:35 injection/a spiration joint/bursa (PROC) - in office procedure, administere d by provider 2022 023 [email or web address] In-Office Order, Internal Use Only DO Not Attach Compendium DO Not Attach Compendium, Do Not Delete/merge, [id number] 10:30:44 Surgeries None recorded. Imaging None recorded. Medication Orders Kenalog 10 mg/mL suspension for injection 2022 023 [facility]39, [address], [place], [id number], 3 14:43:39 ropivacaine (PF) 5 mg/mL (0.5 %) injection solution 2022 023 [facility] #22596, [address], [place], [id number], 3 14:43:39 Kenalog 10 mg/mL suspension for injection 2022 023 [facility] #61727, [address], [place], [id number], 3 10:44:05 ropivacaine (PF) 5 mg/mL (0.5 %) injection solution 2022 023 [facility], [address], [place], [id number], 3 10:44:05 prednisone 10 mg tablets in a dose pack 2022 [address] [facility] [address] [place], [place] [address]12060, [address], [place], [id number], 3 10:44:05 Kenalog 10 mg/mL suspension for injection 2022 023 [facility] #47823, [address], [place], [id number], 06/19/202 3 10:49:11 ropivacaine (PF) 5 mg/mL (0.5 %) injection solution [address] [facility]26190, [address], [place], [id number], 3 10:49:11 prednisone 10 mg tablets in a dose pack [address] [facility]61156, [address], [place], [id number], 3 11:24:03 Kenalog 10 mg/mL suspension for injection [address] [facility] #69436, [address], [place], [id number], 3 10:33:56 ropivacaine (PF) 5 mg/mL (0.5 [...] Name and Address Organization Details Recorded Time Pain of bilateral hip joints 2002012919110 9100 Active 2022 Jessica amaral, [employer] 3 10:11:34 Trochanteri c bursitis of left hip 8233172808826 03 Active 2022 Ernesto Ritter MD [address] [facility], [facility] [address], [place], [address] , [employer] 10:32:42 Problem Notes None recorded. Procedures Surgical History Date Name Laterality Status Provider Name and Address Organization Details Recorded Time 05/28/20 23 Ortho - Cortisone Injection completed Ernesto Ritter MD [address], [place], [address], [facility] [employer] [facility] 05/28/2023 14:40:28 04/29/20 23 Ortho - Cortisone Injection completed Ernesto Ritter MD [address], [address], [place], [address], [facility] [employer] [facility] [employer] [facility] 04/29/2023 10:45:06 04/01/20 23 Ortho - Cortisone Injection completed Ernesto Ritter MD [address], [place], [address], [facility] [employer] [facility] 04/01/2023 11:06:16 03/07/20 23 Ortho - Cortisone Injection completed Ernesto Ritter MD [address], [place], [address], [facility] [employer] [facility] 03/07/2023 10:32:34 Cholecystectomy completed Jessicavamshi Jin [facility] [employer] [facility] 03/07/2023 10:24:24 Hysterectomy completed Jessica Jin [facility] [employer] [facility] 03/07/2023 10:24:31 Cataract Surgery completed Jessica Jin [facility] [employer] [facility] 03/07/2023 10:24:39 Imaging Results None recorded. Procedure Notes None recorded. Medical Equipment None Reported. Allergies Allergen ID Allergen Name Allergen Category Reaction Reaction Severity Criticality Documentation Date Start Date Code Code System Note Provider Name and Address Organization Details Recorded Time 39062 codeine medicatio n Not available Not available Not available 03/07/2023 6980 RxNorm breat shaun [facility] [employer] [facility] 10:20:40 Medications Name Sig Start Date [...] by injection route. 2022 active [facility] [id number] -[phone]- [phone] Not Available Not Available Not Available Vitals Date Recorded Body height Body mass index (BMI) Body weight Provider Name and Address Organization Details Last Updated DateTime 03/07/2023 167.64 cm 25 kg/m2 50602.82 g Jessica Jin [facility] [employer] 03/07/2023 10:19:56 Date Recorded Body height Body mass index (BMI) Body weight Provider Name and Address Organization Details Last Updated DateTime 04/01/2023 167.64 cm 24.2 kg/m2 92752.86 g Yani Joseph [employer] [place] [employer] [facility] [employer] 04/01/2023 09:54:27 Date Recorded Body height Body mass index (BMI) Body weight Provider Name and Address Organization Details Last Updated DateTime 04/29/2023 167.64 cm 25.8 kg/m2 70326.78 g YOSSI Suazo [email or web address] [facility] [employer] 04/29/2023 09:50:22 Date Recorded Body height Body mass index (BMI) Body weight Provider Name and Address Organization Details Last Updated DateTime 05/28/2023 167.64 cm 24.9 kg/m2 85080.22 g Yani Joseph [employer]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 03/07/2023 [email or web address] Information not available 03/07/2023 How Much Tobacco Do You Smoke? 1 PPD [email or web address] Information not available 03/07/2023 Sex: Unknown Functional Status Question Answer Note LastModified by [facility] Details LastModified Time Do you or have you ever used any other forms of tobacco or nicotine? No [email or web address] Information not available 03/07/2023 What is your level of alcohol consumption? Occasional Information not available 03/07/2023 Mental Status None recorded. Family History Relationship Description Onset Age of this Age Resolved Age Notes LastModified by Organization Details LastModified Time Unspecified Relation Family history of stroke [email or web address] Not available 03/07 10:23:16 Mother Family history of malignant neoplasm [email or web address] Not available 03/07 10:23:26 Mother Diabetes mellitus [email or web address] Not available 03/07 10:23:40 Sister Diabetes mellitus [email or web address] Not available 03/07 10:23:40 Medical History Condition Response ARTHRITIS Y HYPERTENSION Y Gynecological HistoryNo gynecological history recorded. Obstetrics History GPAL:G 0 P 0 0 0 0 Past Encounters Encounter ID Performer Location Encounter Start Date Encounter Closed Date Diagnosis/Indication Diagnosis SNOMED-CT Code Diagnosis ICD10 Code Diagnosis IMO Codes Diagnosis Note [id number] Ernesto Ritter MD [facility] [address] [place] [address] 03/07/2023 09:59:52 03/07/2023 10:56:13 Pain of bilateral hip joints 0308708760 8285761 M25.551 M25.552 Trochanter ic bursitis of left hip 7085794985 46365 M70.62 [id number] Ernesto Ritter MD [facility] [address] [place] [address] 04/01/2023 09:48:20 04/01/2023 11:12:21 Pain of bilateral hip joints 0325092564 5926241 M25.551 M25.552 Trochanter ic bursitis of left hip 7935217706 59531 M70.62 [id number] Ernesto Ritter MD [facility] [place] [address] [place] [address] 04/29/2023 09:42:24 04/29/2023 10:49:22 Pain of bilateral hip joints 5304503469 5357375 M25.551 M25.552 Trochanter ic bursitis of left hip 3388684955 10373 M70.62 [id number] Ernesto Ritter MD [facility] [place] [address] [facility] [address] [place] [address] 05/28/2023 14:08:08 05/28/2023 15:42:25 Pain of bilateral hip joints 0356941837 3207772 M25.551 M25.552 Trochanter ic bursitis of left hip 6305368005 56464 M70.62 Health Concerns Section Related Observation LastModified by Organization Detai ls LastModified Time None Recorded Concern Status LastModified by Organization Details LastModified Time None Recorded Advance Directives Directive None Recorded Payers Insurance Date Sequence Insurance Name Policy Number Policy Li Covered Member ID Li Member ID Guarantor Name 05/28/2023 1 [place] Sugey Self [id number] Sugey Self 06/03/2023 2 [facility] (MEDICARE SUPPLEMENT) Sugey Self [id number] Sugey Self Notes Date Note Type Note Provider Name and Address Organization Details Recorded Time 03/07/20 23 text/htm l Hip(s)Reported by PatientHPIFor associated symptoms, patient reportsweaknessandswellingbut reportsno numbness,no redness,no ecchymosis,no catching/locking,no popping/clicking,no buckling,no grinding,no instability,no radiation down leg,no drainage,no fever,no chills,no weight loss, andno change in bowel/bladder habits. For location, patient reportsrightandlateral. For quality, patient reportsthrobbing,superficial, andfrequent. For severity, patient reportsmoderate. For duration, patient reportscontinuous since onset. For timing, patient reportsoccasional. For context, patient reportsoveruse. For alleviating factors, patient reportslying down,heat,ice,rest,exercise, andlimited weight bearing. For aggravating factors, patient reportsstanding,walking, andbending/squatting. Ernesto Ritter MD [address] [place] [address], [place], [address], [facility] [employer] 03/07/2023 10:33:52 04/01/20 23 text/htm l Patient returns hip pain left. She is tender over the trochanteric region. She got an injection of pills last time this seemed to take care much the pain. Unfortunately it has recurred it is tender she is tender again laterally more so than in the groin or buttock. Erensto Ritter MD [address], [place], [address], [email or web address] [facility] [employer] [facility] 04/01/2023 11:38:23 04/29/20 text/htm l Patient returns hip pain left. She has trochanteric bursitis and tenderness laterally. She got relief from the injection in the and the anti-inflammatory medication adjusted last. Ernesto Ritter MD [address], [place], [address], [email or web address] [facility] [employer] [facility] 04/29/2023 10:46:56 05/28/20 text/htm l Patient returns hip pain left. She has trochanteric bursitis and tenderness laterally. She got relief from the injection in the and the anti-inflammatory medication adjusted last. Ernesto Ritter MD [address], [place], [address], [email or web address] [facility] [employer] [facility] 05/28/2023 14:41:52 OBGyn Episode No OBEpisode recorded.
[2025-09-18 08:06] VITALS: BP 194/78; PULSE 74; RESP 20; TEMP 36.4; O2SAT 98
--- NOTE | 2025-09-18 08:54 | ED.GENADULT ---
HPI - General Adult General Chief complaint: Extremity Problem,Nontraumatic Stated complaint: bilateral hip pain Time Seen by Provider: 09/18/25 08:42 History of Present Illness HPI narrative: 75-year-old female present to the emergency department for evaluation for acute on chronic bilateral hip pain. Patient reports he does have history of sciatica and does have history of chronic hip pain. Patient reports she did have a fall approximately 3 days ago but denies any acute worsening of her pain at that time. Patient denies any associated numbness or weakness. Patient denies any change in bowel or bladder habits. Patient does have history of COPD, chronic kidney disease. Patient did take tramadol for pain control this morning but states it did not significantly help. Patient states while the pain has been ongoing for the last week she felt that it was too bad for her to take today so she presented to the emergency department for evaluation. Related Data Home Medications ?Medication ?Instructions ?Recorded ?Confirmed ?Last Taken ?Type aspirin 81 mg tablet,delayed 81 mg PO DAILY 02/28/21 07/22/25 01/14/25 History release labetalol 200 mg tablet 100 mg PO BID 03/01/25 07/22/25 Unknown History Allergies Allergy/AdvReac Type Severity Reaction Status Date / Time codeine Allergy Intermediate HEAVY Verified 09/18/25 08:02 FEELING ON CHEST hydrocodone Allergy Intermediate Rash Verified 09/18/25 08:02 Review of Systems Review of Systems: All systems reviewed & are unremarkable except as noted in HPI and below PMFSH Past Medical History Medical History Sinusitis Sinusitis, chronic Ear pressure Cholecystectomy planned (~2000) History of sinus problem Ear discharge Blurred vision Lack of bladder control Blood in urine Vaginal infection History of one miscarriage Chicken pox Bronchitis Surgical History Surgical History H/O: hysterectomy (~2002) Family History Family History Father , 49 Hepatic sclerosis Mother , 77 Diabetes mellitus Renal failure Social History Social History Social History: Patient drinks 2 pots of coffee per day. Smoking packs per day: 0.5 Smoking cigarettes per day: 10.0 Smoking status: Current every day smoker Tobacco type: cigarettes Alcohol intake: current Alcohol use details: Patient drinks alcohol rarely Substance use: current Substance use type: marijuana Lack of Transportation: No Lack of Food: Never True Current Housing: I Have Housing Concerned About Future Housing: No Difficulty Paying Gas/Electric Bills: No Difficulty Paying for Meds: No Currently Unemployed: No Education: High School Diploma/GED Difficulty w/ Childcare or Family Care: No Living arrangements: with family Occupation/Education: retired Gender identity (if verbalized by the patient): Female Sexual Orientation (if Verbalized by the Patient): Straight or Heterosexual Spiritual care concerns: No Exam Narrative: APPEARANCE: uncomfortable appearing HEAD: normocephalic, atraumatic. EYES: PERRLA/EOMI, conjunctivae clear. NOSE: Normal no drainage EARS:TMS clear with good light reflex. THROAT: Pharynx clear, no exudate. NECK: Supple. No adenopathy, no masses. RESPIRATORY: Airway patent, respirations nonlabored. Clear to auscultation bilaterally, no rales, rhonchi, wheezing. CARDIOVASCULAR: Regular rate and rhythm without murmurs rubs or gallops. ABDOMINAL: Soft, nontender, nondistended, normal bowel sounds MUSCULOSKELETAL: Moves all extremities. Strength/ROM intact, No edema, No calf tenderness. NEURO: Alert. Cranial nerves II through XII intact. Good gait. Good coordination SKIN: Warm, dry. Normal Color Course Vital Signs Vital signs: Vital Signs Temperature 98 F 09/18/25 07:57 Pulse Rate 99 09/18/25 07:57 Respiratory Rate 18 09/18/25 07:57 Blood Pressure 168/87 H 09/18/25 07:57 Pulse Oximetry 97 09/18/25 07:57 Oxygen Delivery Room Air 09/18/25 07:57 Temperature 97.6 F 09/18/25 08:06 Pulse Rate 100 09/18/25 11:00 Respiratory Rate 20 09/18/25 11:00 Blood Pressure 166/69 H 09/18/25 11:00 Pulse Oximetry 96 09/18/25 11:00 Oxygen Delivery Room Air 09/18/25 07:57 MDM MDM Narrative Medical decision making narrative: 75-year-old female present to the emergency department for evaluation for chronic hip pain. Patient does take tramadol for pain control but states this was not helping. Patient was treated with IM hydromorphone and patient states this did improve her symptoms. Patient was also treated with Flexeril. Patient will be provided Flexeril for muscle spasm. CT were negative for acute abnormality. Low concern for fracture, osteomyelitis, cauda equina. Patient's symptoms are consistent with chronic osteoarthritis verses SI joint pain versus sciatica. on re-evaluation patient was significantly improved and was in no distress. Patient family updated the results of the imaging and plan for treatment for pain control for home. Patient was also encouraged of close follow-up with primary care physician for additional outpatient follow-up. All questions concerns were addressed. Differential Diagnosis Differential Diagnosis: Arthritis, osteoarthritis, lumbar fracture, pelvic fracture, hip fracture Imaging Data Radiologist's impression: ITS Impressions Pelvis CT 09/18/25 09:22 IMPRESSION: 1. Moderate osteoarthritis of the hips. Lumbar Spine CT 09/18/25 09:24 IMPRESSION: 1. No fracture. 2. Severe lumbar spondylosis. 3. Lumbar levoscoliosis. Discharge Plan Discharge Clinical Impression: Chronic hip pain Patient Disposition: Home Condition: Stable Instructions: Antibiotic Form Additional Instructions: Tylenol for pain control. Home tramadol as needed for additional pain control. Flexeril for muscle spasm. Have close follow-up with your primary care physician. If you have any worsening symptoms then please call or return to the emergency department. Patient Language: Australian Prescriptions: New cyclobenzaprine 10 mg tablet 10 mg PO BID PRN (Reason: muscle spasm) Qty: 14 0RF No Action fluticasone propionate [Flonase Allergy Relief] 50 mcg/actuation spray,suspension 1 spray intranasal DAILY Qty: 16 0RF Rx Instructions: administer into each nostril albuterol sulfate 90 mcg/actuation HFA aerosol inhaler See Rx Instructions .ROUTE .COMPLEX Qty: 8.5 3RF Dose Instruction: INHALE 1 PUFF BY MOUTH EVERY 4 HOURS NEEDED FOR SHORTNESS OF BREATH OR WHEEZING Rx Instructions: INHALE 1 PUFF BY MOUTH EVERY 4 HOURS NEEDED FOR SHORTNESS OF BREATH OR WHEEZING chlorthalidone 25 mg tablet 25 mg PO BID Qty: 60 5RF aspirin 81 mg tablet,delayed release (DR/EC) 81 mg PO DAILY labetalol 200 mg tablet 100 mg PO BID rosuvastatin 40 mg tablet 40 mg PO DAILY Qty: 30 12RF amlodipine 10 mg tablet See Rx Instructions .ROUTE .COMPLEX Qty: 90 2RF Dose Instruction: TAKE 1 TABLET BY MOUTH DAILY Rx Instructions: TAKE 1 TABLET BY MOUTH DAILY tramadol 50 mg tablet 50 mg PO TID PRN (Reason: pain) Qty: 30 2RF venlafaxine 75 mg capsule,extended release 24hr See Rx Instructions .ROUTE .COMPLEX Qty: 90 2RF Dose Instruction: TAKE 1 CAPSULE BY MOUTH EVERY MORNING Rx Instructions: TAKE 1 CAPSULE BY MOUTH EVERY MORNING Follow-up/Referrals: Joshua Bond MD [Primary Care Provider, Internal Medicine]
[2025-09-18] MEDS: HYDROmorphone HCL INJ (*CRX) 1 MG/ML SYR IM (08:59)
[2025-09-18] MEDS: ONDANSETRON HCL ODT 4 MG TABLET PO (08:59)
[2025-09-18] MEDS: CYCLOBENZAPRINE HCL 10 MG TABLET PO (08:59)
--- OUTSIDE RECORDS SUMMARY | 2025-09-18 09:24 | XMS_ITS | Clinical Summary ---
Author Organization [facility] Address [address] [place] [address] Phone Care Team Providers Care Blood Tester Name Role Phone Joshua Bond MD Primary Care Provider [phone] Allergies Active Allergy Reactions Criticality Noted Date [...] PCV) 2002 Influenza Vaccine (#1) 2025 Insurance [facility] MEDICARE [place] SHAH [id number] Care Teams Blood Tester Relationship Specialty Start Date End Date Joshua Bond MD [address] [place] [address] PCP - General Internal Medicine 04/11/22
[2025-09-18 11:00] VITALS: BP 166/69; PULSE 100; RESP 20; O2SAT 96
== END 2025-09-18 11:02 | disposition home or self-care (01) ==
PROVIDERS: Emergency Provider Emergency Medicine; PCP Emergency Medicine
DX: M25.552 Pain in left hip (principal); M25.551 Pain in right hip; G89.29 Other chronic pain; N18.9 Chronic kidney disease, unspecified; J44.9 Chronic obstructive pulmonary disease, unspecified; J32.9 Chronic sinusitis, unspecified; F17.210 Nicotine dependence, cigarettes, uncomplicated; Z90.710 Acquired absence of both cervix and uterus; Z79.82 Long term (current) use of aspirin; Z79.899 Other long term (current) drug therapy; M16.0 Bilateral primary osteoarthritis of hip; M47.816 Spondylosis without myelopathy or radiculopathy, lumbar region
CPT/HCPCS: 72131; 72192; 96372; 99284; A9270; J1171